=== PATIENT | female | born 1940 | race Caucasian/White ===

== ENCOUNTER → 2017-02-12 | Outpatient (REF) | payer OTHER ==
[~2017-02-12] MED LIST: /MOXI40TA PO; ACET-654 PO; ALLO300T2 PO; ASPI1TAB PO; ASPI81CH12 PO; ATOR40TA PO; BISO5TAB5 PO; BISO5TAB54 PO; CIPR500T89 PO; COLA50CA3 PO; FLAG500T PO; HYDR12.56 PO; LASI20TA PO; LASI40TA PO; LISI5TAB PO; LOSA50TA20 PO; METF500T PO; MICR10CA PO; MULTTAB4 PO; NORCOTAB PO; OMEP20CA3 PO; PERCOCET PO; POTA20TA4 PO; PRED10TA2 PO; PRED1TAB32 PO; VITA200019 PO; VITMTA PO; ZYLO300T4 PO; benefiber PO
== END ==
LOC: M SFHCPLAZ 10:06
PROVIDERS: ATTEND Family Medicine
DX: E11.9 Type 2 diabetes mellitus without complications (principal)

== ENCOUNTER → 2017-05-05 | Outpatient (CLI) | payer OTHER ==
[~2017-05-05] VITALS: Ht 154.9 cm; Wt 104.3 kg
[~2017-05-05] MED LIST changes: -ATOR40TA PO; +ATOR40TA75 PO; +CIPR-249 PO; -CIPR500T89 PO; +FIBE625T27 PO; +LIDOCAINE 2% INJ 100 MG/5 ML SDV (FOR ANES.) As Ordered ONE; +METF500T13 PO; +NS 1,000 ML IV ONE; +PROPOFOL 500 MG/50 ML VIAL As Ordered ONE; +VITA100067 PO
--- NOTE | 2017-05-05 08:46 | ROOR ---
Patient Name: Diana Matias Procedure Date: 05/05/2017 8:03 AM Date of : 1940 Age: 76 Room: [facility] Gender: Female Note Status: Finalized Procedure: Colonoscopy Indications: High risk colon cancer surveillance: Personal history of colonic polyps Providers: Hal Stevens DO Referring MD: Allegra Robbins DO Requesting Provider: Medicines: Propofol per Anesthesia Complications: No immediate complications. Estimated blood loss: None. Procedure: Pre-Anesthesia Assessment: - Prior to the procedure, a History and Physical was performed, and patient medications and allergies were reviewed. The patient is competent. The risks and benefits of the procedure and the sedation options and risks were discussed with the patient. All questions were answered and informed consent was obtained. Patient identification and proposed procedure were verified by the physician, the nurse, the anesthesiologist and the operations technician in the endoscopy suite. Mental Status Examination: alert and oriented. Airway Examination: normal oropharyngeal airway and neck mobility. Respiratory Examination: clear to auscultation. CV Examination: normal. Prophylactic Antibiotics: The patient does not require prophylactic antibiotics. Prior Anticoagulants: The patient has taken no previous anticoagulant or antiplatelet agents. ASA Grade Assessment: II - A patient with mild systemic disease. After reviewing the risks and benefits, the patient was deemed in satisfactory condition to undergo the procedure. The anesthesia plan was to use monitored anesthesia care (MAC). Immediately prior to administration of medications, the patient was re-assessed for adequacy to receive sedatives. The heart rate, respiratory rate, oxygen saturations, blood pressure, adequacy of pulmonary ventilation, and response to care were monitored throughout the procedure. The physical status of the patient was re-assessed after the procedure. The Colonoscope was introduced through the anus and advanced to the cecum, identified by appendiceal orifice and ileocecal valve. The colonoscopy was performed without difficulty. The patient tolerated the procedure well. Findings: The perianal exam findings include internal hemorrhoids that prolapse with straining, but spontaneously regress to the resting position (Grade II). Two hyperplastic polyps were found in the descending colon and distal transverse colon. The polyps were 5 to 8 mm in size. These polyps were removed with a hot snare. Resection and retrieval were complete. Estimated blood loss was minimal. A less than 5 mm polyp was found in the ascending colon. The polyp was hyperplastic. Polyp resection was incomplete due to the polypectomy being technically difficult and complex. The exam was otherwise without abnormality on direct and retroflexion views. Impression: - Internal hemorrhoids that prolapse with straining, but spontaneously regress to the resting position (Grade II) found on perianal exam. - Two 5 to 8 mm polyps in the descending colon and in the distal transverse colon, removed with a hot snare. Resected and retrieved. - One less than 5 mm polyp in the ascending colon. - The examination was otherwise normal on direct and retroflexion views. Recommendation: - Patient has a contact number available for emergencies. The signs and symptoms of potential delayed complications were discussed with the patient. Return to normal activities tomorrow. Written discharge instructions were provided to the patient. - Repeat colonoscopy in 3 - 5 years for surveillance based on pathology results. - Return to my office PRN. Hal Stevens DO 05/05/2017 8:46:00 AM This report has been signed electronically. Number of Addenda: 0 Note Initiated On: 05/05/2017 8:03 AM Estimated Blood Loss: Estimated blood loss: none.
[2017-05-05 09:30] VITALS: BP 154/71
== END | disposition home or self-care (01) ==
LOC: M OPP 07:13
PROVIDERS: ATTEND Surgery
DX: Z12.11 Encounter for screening for malignant neoplasm of colon (principal); K64.1 Second degree hemorrhoids; D12.4 Benign neoplasm of descending colon; D12.3 Benign neoplasm of transverse colon; D12.2 Benign neoplasm of ascending colon; K21.9 Gastro-esophageal reflux disease without esophagitis; I50.9 Heart failure, unspecified; M10.9 Gout, unspecified; E11.9 Type 2 diabetes mellitus without complications; I10 Essential (primary) hypertension; E78.5 Hyperlipidemia, unspecified; E66.9 Obesity, unspecified; G47.30 Sleep apnea, unspecified; Z91.011 Allergy to milk products; Z88.0 Allergy status to penicillin; Z88.8 Allergy status to other drugs, medicaments and biological substances; Z79.899 Other long term (current) drug therapy; Z79.82 Long term (current) use of aspirin; Z79.84 Long term (current) use of oral hypoglycemic drugs; Z86.79 Personal history of other diseases of the circulatory system

== ENCOUNTER → 2017-08-11 | Outpatient (REF) | payer OTHER ==
[~2017-08-11] MED LIST changes: -LIDOCAINE 2% INJ 100 MG/5 ML SDV (FOR ANES.) As Ordered ONE; -NS 1,000 ML IV ONE; -PROPOFOL 500 MG/50 ML VIAL As Ordered ONE
== END ==
LOC: M SFHCPLAZ 11:22
PROVIDERS: ATTEND Hospitalist
DX: E11.9 Type 2 diabetes mellitus without complications (principal)

== ENCOUNTER → 2017-09-02 | Outpatient (REF) | payer OTHER ==
[2017-09-02 16:27] LABS: ALKALINE PHOSPHATASE 111 U/L (45-117); ANION GAP 7 MEQ/L (8-16); BLOOD UREA NITROGEN 19 MG/DL (7-18); CALCIUM LEVEL 10.7 MG/DL (8.8-10.2); CARBON DIOXIDE LEVEL 31 MEQ/L (21-32); CHLORIDE LEVEL 106 MEQ/L (98-107); CREATININE FOR GFR 0.89 MG/DL (0.55-1.02); GLOMERULAR FILTRATION RATE > 60.0 (>39); GLUCOSE, FASTING 68 MG/DL (83-110); PHOSPHORUS LEVEL 2.2 MG/DL (2.5-4.9); SODIUM LEVEL 144 MEQ/L (136-145); TOTAL PROTEIN 6.6 GM/DL (6.4-8.2)
[2017-09-06 10:53] LABS: ALBUMIN 3.78 GM/DL (3.29-5.55); ALBUMIN % 57.3 % (55.8-66.1); GAMMA GLOBULIN % 9.4 % (11.1-18.8)
== END ==
LOC: M SFHCPLAZ 13:42
DX: E83.52 Hypercalcemia (principal)
CPT/HCPCS: 36415; 80048; 82306; 83970; 84075; 84100; 84165; 84166; 90670; G0009; G0463

== ENCOUNTER → 2017-09-18 | Outpatient (CLI) | payer OTHER ==
[2017-09-18 10:58] LABS: CALCIUM LEVEL 10.6 MG/DL (8.8-10.2)
== END ==
LOC: M LAB 09:28
PROVIDERS: ATTEND Hospitalist
DX: J00 Acute nasopharyngitis [common cold] (principal); E21.3 Hyperparathyroidism, unspecified

== ENCOUNTER → 2017-09-21 | Outpatient (REF) | payer OTHER ==
[2017-09-21 10:51] LABS: CALCIUM, URINE 10.7 MG/DL
== END ==
LOC: M SFHCPLAZ 09:58
PROVIDERS: ATTEND Hospitalist
DX: E21.3 Hyperparathyroidism, unspecified (principal); J00 Acute nasopharyngitis [common cold]

== ENCOUNTER → 2017-10-25 | Outpatient (CLI) | payer OTHER ==
--- NOTE | 2017-10-25 14:48 | REP ---
NUCLEAR PARATHYROID SESTAMIBI SCAN WITH SPECT IMAGING: Following the intravenous administration of 27.5 mCi of technetium-99m sestamibi images of the neck are performed in various projections. Initial 15 minute images are performed followed by 3 hour delayed images of the neck with SPECT imaging also performed. Initial images show symmetrical salivary gland uptake. There is activity in the thyroid bed more so on the right than on the left. On the delayed images the activity in the left thyroid bed washes out, but there is a persistent focus of increased uptake in the inferior right thyroid bed. Findings are consistent with a parathyroid adenoma at that location. IMPRESSION: Findings consistent with right sided parathyroid adenoma inferiorly in the region of the right thyroid bed. Signed by Hal Nam MD 10/25/2017 05:58 P
== END ==
LOC: M RAD 09:05
PROVIDERS: ATTEND Hospitalist
DX: E21.3 Hyperparathyroidism, unspecified (principal)
CPT/HCPCS: 78070; 78803; A9500

== ENCOUNTER → 2018-02-03 | Outpatient (REF) | payer OTHER ==
[2018-02-03 18:38] LABS: ANION GAP 5 MEQ/L (8-16); BLOOD UREA NITROGEN 14 MG/DL (7-18); CALCIUM LEVEL 10.4 MG/DL (8.8-10.2); CARBON DIOXIDE LEVEL 30 MEQ/L (21-32); CHLORIDE LEVEL 108 MEQ/L (98-107); CREATININE FOR GFR 0.78 MG/DL (0.55-1.30); GLOMERULAR FILTRATION RATE > 60.0 (>39); GLUCOSE, FASTING 89 MG/DL (70-100); POTASSIUM SERUM 4.2 MEQ/L (3.5-5.1); SODIUM LEVEL 143 MEQ/L (136-145)
[2018-02-03 18:53] LABS: PTH INTACT 233.1 PG/ML (18.5-88.0)
[2018-02-04 10:44] LABS: APPEARANCE, URINE CLEAR (CLEAR); BACTERIA, URINE AUTO NEGATIVE (NEGATIVE); BILIRUBIN, URINE AUTO NEGATIVE (NEGATIVE); BLOOD, URINE BLOOD NEGATIVE (NEGATIVE); COLOR, URINE YELLOW (YELLOW); GLUCOSE, URINE (UA) AUTO NEGATIVE (NEGATIVE); KETONE, URINE AUTO NEGATIVE (NEGATIVE); LEUKOCYTE ESTERASE, URINE AUTO TRACE (NEGATIVE); NITRITE, URINE AUTO NEGATIVE (NEGATIVE); PROTEIN, URINE AUTO NEGATIVE (NEGATIVE); RBC, URINE AUTO 0 /HPF (0-3); SPECIFIC GRAVITY URINE AUTO 1.009 (1.002-1.035); SQUAMOUS EPITHELIAL CELL UR AU 0 /HPF (0-6); UROBILINOGEN, URINE AUTO 0.2 mg/dL (0.0-2.0); WBC, URINE AUTO 2 /HPF (0-3)
== END ==
LOC: M SFHCPLAZ 14:37
DX: E83.52 Hypercalcemia (principal)
CPT/HCPCS: 80048

== ENCOUNTER → 2018-05-27 | Outpatient (REF) | payer OTHER ==
[2018-05-27 15:56] LABS: APPEARANCE, URINE CLEAR (CLEAR); BACTERIA, URINE AUTO NEGATIVE (NEGATIVE); BILIRUBIN, URINE AUTO NEGATIVE (NEGATIVE); BLOOD, URINE BLOOD NEGATIVE (NEGATIVE); COLOR, URINE STRAW (YELLOW); GLUCOSE, URINE (UA) AUTO NEGATIVE (NEGATIVE); KETONE, URINE AUTO NEGATIVE (NEGATIVE); LEUKOCYTE ESTERASE, URINE AUTO NEGATIVE (NEGATIVE); NITRITE, URINE AUTO NEGATIVE (NEGATIVE); PROTEIN, URINE AUTO NEGATIVE (NEGATIVE); RBC, URINE AUTO 3 /HPF (0-3); SPECIFIC GRAVITY URINE AUTO 1.006 (1.002-1.035); SQUAMOUS EPITHELIAL CELL UR AU 0 /HPF (0-6); UROBILINOGEN, URINE AUTO 0.2 mg/dL (0.0-2.0); WBC, URINE AUTO 1 /HPF (0-3)
[2018-05-27 16:16] LABS: ANION GAP 5 MEQ/L (8-16); BLOOD UREA NITROGEN 16 MG/DL (7-18); CALCIUM LEVEL 9.4 MG/DL (8.8-10.2); CARBON DIOXIDE LEVEL 31 MEQ/L (21-32); CHLORIDE LEVEL 107 MEQ/L (98-107); CREATININE FOR GFR 0.81 MG/DL (0.55-1.30); GLOMERULAR FILTRATION RATE > 60.0 (>39); GLUCOSE, FASTING 71 MG/DL (70-100); NT-PRO BNP 113 PG/ML (<450); POTASSIUM SERUM 4.1 MEQ/L (3.5-5.1); SODIUM LEVEL 143 MEQ/L (136-145)
[2018-05-27 16:22] LABS: CREATININE, URINE 29.2 MG/DL; MAU/CREAT RATIO 20.5 MCG/MG (0.0-30.0)
== END ==
LOC: M SFHCPLAZ 13:58
DX: M79.89 Other specified soft tissue disorders (principal); I51.9 Heart disease, unspecified; R21 Rash and other nonspecific skin eruption; G47.33 Obstructive sleep apnea (adult) (pediatric)
CPT/HCPCS: 82043

== ENCOUNTER 2019-02-01 11:03 | Emergency (ER) | payer MEDICARE, OTHER ==
[~2019-02-01] VITALS: Ht 154.9 cm; Wt 104.5 kg
[~2019-02-01 11:03] MED LIST changes: -/MOXI40TA PO; -ASPI1TAB PO; +ASPI81TA26 PO; +AVEL1TAB2 PO; +HYDR-3715 PO; -LASI20TA PO; +LASI20TA3 PO; -LOSA50TA20 PO; +LOSA50TA88 PO; -NORCOTAB PO; +OXYC1TAB23 PO; -PERCOCET PO; -ZYLO300T4 PO; +ZYLO300T6 PO
--- NOTE | 2019-02-01 11:44 | REP ---
CT Head without contrast HISTORY: Headache COMPARISON: None There is no intraparenchymal hemorrhage, acute infarct, mass or midline shift. Diffuse subarachnoid hemorrhage is present. The ventricular system is normal in appearance. There is no extra cerebral collection. There is no fracture. Mucosal thickening is present in the right maxillary sinus. IMPRESSION: There is diffuse subarachnoid hemorrhage. Results were discussed with Dr. Aponte at 11:35 a.m. 02/01/2019 Electronically Signed by Wilfredo Jung MD 02/01/2019 11:35 A
[2019-02-01] MEDS ORDERED: MORPHINE 2 MG/ML 1ML SYRINGE (J2270) IV PRN (11:45)
[2019-02-01] MEDS ORDERED: ONDANSETRON 4MG/2ML VIAL (J2405) IV ONE (11:45)
[2019-02-01] MEDS ORDERED: niMODipine 30 MG CAP PO STA (11:58)
[2019-02-01] MEDS ORDERED: levETIRAcetam INJection 1,000 MG in D5W 100 ML IV ONE (12:00)
[2019-02-01] MEDS ORDERED: niCARdipine IV 40 MG in APPROPRIATE DILUENT 1 EA IV SCH (12:00)
[2019-02-01 12:10] LABS: BASO % 0.2 % (0.0-1.0); EOS % 0.9 % (0.0-3.0); HEMATOCRIT 42.1 % (36.0-47.0); HEMOGLOBIN 13.5 g/dl (12.0-15.5); LYMPH % 22.2 % (24.0-44.0); MEAN CORPUSCULAR HEMOGLOBIN 29.9 pg (27.0-33.0); MEAN CORPUSCULAR HGB CONC 32.1 g/dl (32.0-36.5); MEAN CORPUSCULAR VOLUME 93.1 fl (80.0-96.0); MONO # 0.2 10^3/uL (0.0-0.8); MONO % 5.1 % (0.0-5.0); NEUTROPHILS # 3.2 10^3/uL (1.8-7.7); NEUTROPHILS % 71.6 % (36.0-66.0); PLATELET COUNT, AUTOMATED 179 10^3/uL (150-450); RED BLOOD COUNT 4.52 10^6/uL (4.00-5.40); WHITE BLOOD COUNT 4.5 10^3/uL (4.0-10.0)
[2019-02-01 12:27] VITALS: BP 173/81
[2019-02-01 12:27] LABS: INR 1.03; PROTHROMBIN TIME 13.6 SECONDS (12.1-14.4)
[2019-02-01 12:35] LABS: ALBUMIN 3.6 GM/DL (3.2-5.2); ALT/SGPT 19 U/L (12-78); BILIRUBIN,TOTAL 0.5 MG/DL (0.2-1.0); BLOOD UREA NITROGEN 19 MG/DL (7-18); CALCIUM LEVEL 10.2 MG/DL (8.8-10.2); CARBON DIOXIDE LEVEL 30 MEQ/L (21-32); CHLORIDE LEVEL 104 MEQ/L (98-107); CREATININE FOR GFR 0.95 MG/DL (0.55-1.30); GLOMERULAR FILTRATION RATE > 60.0 (>32); GLUCOSE, FASTING 122 MG/DL (70-100); POTASSIUM SERUM 3.9 MEQ/L (3.5-5.1); SODIUM LEVEL 140 MEQ/L (136-145)
== END 2019-02-01 12:27 | disposition short-term general hospital (02) ==
LOC: M ED 11:03 → EDBD 11:03 → M ED 12:27
DX: I60.9 Nontraumatic subarachnoid hemorrhage, unspecified (principal); I11.0 Hypertensive heart disease with heart failure; I50.9 Heart failure, unspecified; E11.9 Type 2 diabetes mellitus without complications; I25.10 Atherosclerotic heart disease of native coronary artery without angina pectoris; Z79.899 Other long term (current) drug therapy; Z79.84 Long term (current) use of oral hypoglycemic drugs; Z79.82 Long term (current) use of aspirin; Z88.0 Allergy status to penicillin; Z88.8 Allergy status to other drugs, medicaments and biological substances; Z91.018 Allergy to other foods
CPT/HCPCS: 70450; 80053; 85025; 85610; 96365; 96375; 99285; J1953; J2270; J2405

== ENCOUNTER 2019-02-17 14:37 | Inpatient (IN) | payer MEDICARE ==
[~2019-02-17] VITALS: Ht 154.9 cm; Wt 103.7 kg
[2019-02-17 15:05] VITALS: BP 164/77
[2019-02-17] MEDS ORDERED: SENN18TA PO (16:12)
[2019-02-17] MEDS ORDERED: CALC12504 PO (16:12)
[2019-02-17] MEDS ORDERED: HEPA500011 INJ (16:12)
[2019-02-17] MEDS ORDERED: BISA10SU27 PR (16:12)
[2019-02-17] MEDS ORDERED: MIRA3350 PO (16:12)
[2019-02-17] MEDS ORDERED: COLA100C5 PO (16:12)
[2019-02-17] MEDS ORDERED: TRAV04OPD OU (16:12)
[2019-02-17] MEDS ORDERED: MELA3TAB49 PO (16:12)
[2019-02-17] MEDS ORDERED: CVS40GEL PO (16:12)
[2019-02-17] MEDS ORDERED: C 50TAB PO (16:12)
[2019-02-17] MEDS ORDERED: FLUD0.1T PO (16:12)
[2019-02-17] MEDS ORDERED: SODI1TAB6 PO (16:12)
[2019-02-17] MEDS ORDERED: KEPP1TAB PO (16:12)
[2019-02-17] MEDS ORDERED: OXYC-517 PO (16:12)
[2019-02-17] MEDS ORDERED: ACET-907 PO (16:12)
[2019-02-17] MEDS ORDERED: LOSA100T50 PO (16:12)
[2019-02-17] MEDS ORDERED: NYST1POW9 TOP (16:12)
[2019-02-17] MEDS ORDERED: MILKSUS3 PO (16:12)
[2019-02-17] MEDS ORDERED: [UNRECOGNIZED DRUG - CODE] PO (16:12)
[2019-02-17] MEDS ORDERED: POTA1TAB14 PO (16:12)
[2019-02-17] MEDS ORDERED: oxyCODONE 5MG TAB PO PRN (16:30)
[2019-02-17] MEDS ORDERED: NYSTATIN 100,000 UNITS/GM TOPICAL PWD 15 GM TOP PRN (16:30)
[2019-02-17] MEDS ORDERED: GLUCAGON FOR INJ 1 MG VIAL (J1610) SC PRN (17:00)
[2019-02-17] MEDS ORDERED: MAALOX 30 ML SUSP *UDC PO PRN (17:00)
[2019-02-17] MEDS ORDERED: GLUCOSE 4 GM CHEW TABLET PO PRN (17:00)
[2019-02-17] MEDS ORDERED: BISACODYL 10 MG SUPP PR PRN (17:00)
[2019-02-17] MEDS ORDERED: ONDANSETRON 4 MG TAB (S0181) PO PRN (17:00)
[2019-02-17] MEDS ORDERED: HEPARIN SOD (PORCINE) 5000 UNITS/ML VIAL SC SCH (17:00)
[2019-02-17] MEDS ORDERED: DEXTROSE 50% 50 ML SYRINGE IV PRN (17:00)
[2019-02-17] MEDS: DOCUSATE SODIUM 100 MG CAP PO SCH ×2 (18:12→20:10)
[2019-02-17] MEDS: SODIUM CHLORIDE 1 GM TAB PO SCH (18:20)
--- NOTE | 2019-02-17 18:23 | CR ---
DATE OF CONSULTATION: 02/17/[address] Jesus Alberto Cheng. Hospitalist consult. Patient is followed by the residency clinic, Dr. Zimmerman. 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 Last seen by Dr. Zimmerman on 02/01/2019. MEDICAL HISTORY: Significant for: 1. Hypertension. 2. Type 2 diabetes. 3. Hyperlipidemia. 4. Gastroesophageal reflux disease (GERD). 5. Mild chronic diastolic heart failure. 6. Some hypercalcemia. She is followed by [facility], Dr. De La Cruz. Had an echocardiogram May 2015 that showed normal left ventricular systolic function, mild aortic insufficiency. She had a nuclear stress test May 2015 with 80% ejection fraction. No reversible ischemia. SURGICAL HISTORY: 1. Laser retinal surgery in the left eye and then subsequently both eyes. 2. Colonoscopy 2016. 3. Cataract removed in 2013. 4. Cystourethroscopy with repair of urethral bulking May 2015. 5. Cholecystectomy January 2017. SOCIAL HISTORY: Does not smoke or drink any alcohol. REVIEW OF SYSTEMS: No headaches, chest pain, shortness of breath, dyspnea on exertion. OUTPATIENT MEDICATIONS: - metformin 500 mg twice a day - nystatin cream - Benefiber - aspirin 81 mg daily - vitamin D3 at 1000 units daily - omeprazole 20 mg daily - Klor-Con 20 mEq daily - Lasix 40 mg, one and one-half tablets daily - atorvastatin 40 mg daily - losartan 100 mg daily IMMUNIZATIONS: She had her Prevnar August 2017, Pneumothorax 30 August 2018. PHYSICAL EXAMINATION: VITAL SIGNS: Per flow sheet. GENERAL APPEARANCE:. She is alert, conversant in no distress. Pupils equal, round, and reactive to light. Tympanic membranes (TMs) and oropharynx benign. NECK: No masses. LUNGS: Clear. HEART: Irregular rhythm, a 1/6 systolic ejection murmur. ABDOMEN: Soft, nontender. No masses. NEUROLOGIC: Normal movement in the arms and legs. Speech is normal. Cranial nerves II-XII grossly normal. EXTREMITIES: No clubbing, cyanosis, or edema. IMPRESSION: 1. Type 2 diabetes. She is getting fingersticks. If she becomes hyperglycemic, she could restart her metformin that she takes as an outpatient. 2. Hypertension. Continue her losartan 100 mg daily. She is on furosemide only 10 mg daily, nimodipine 60 mg every 4 hours times 36 doses. 3. Hyperlipidemia. Continue atorvastatin 40 mg daily. 4. 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 She is currently on aspirin 81 mg daily. I will clarify this with Dr. Granda. Hospitalist available if any medical conditions arise.
[2019-02-17 20:00] VITALS: BP 176/74
[2019-02-17] MEDS: niMODipine 30 MG CAP PO SCH (20:09)
[2019-02-17] MEDS: ATORVASTATIN 20 MG TAB PO SCH (20:09)
[2019-02-17] MEDS: levETIRAcetam 250MG TABLET (KEPPRA) PO SCH (20:09)
[2019-02-17] MEDS: ASCORBIC ACID 500 MG TAB PO SCH (20:10)
[2019-02-17] MEDS: traZODone 25MG PER 1/2 TABLET PO SCH (20:10)
[2019-02-17] MEDS: ACETAMINOPHEN TAB 650MG DOSE (2X325MG) PO PRN (20:11)
[2019-02-17] MEDS: HEPARIN SOD (PORCINE) 5000 UNITS/ML VIAL SQ SCH (20:11)
[2019-02-17] MEDS: SENNA 8.6 MG TAB (SENOKOT) PO SCH (20:12)
[2019-02-17] MEDS ORDERED: DOCUSATE SODIUM 100 MG CAP PO SCH (21:00)
[2019-02-17] MEDS: HumaLOG INSULIN (NovoLOG) PER UNIT SC SCH (21:00)
[2019-02-18] MEDS: niMODipine 30 MG CAP PO SCH ×6 (00:29→21:35)
[2019-02-18 01:30] LABS: APPEARANCE, URINE HAZY (CLEAR); BACTERIA, URINE AUTO 1+ (NEGATIVE); BILIRUBIN, URINE AUTO NEGATIVE (NEGATIVE); BLOOD, URINE BLOOD NEGATIVE (NEGATIVE); COLOR, URINE YELLOW (YELLOW); GLUCOSE, URINE (UA) AUTO NEGATIVE (NEGATIVE); KETONE, URINE AUTO NEGATIVE (NEGATIVE); LEUKOCYTE ESTERASE, URINE AUTO TRACE (NEGATIVE); MUCUS, URINE SMALL (NEGATIVE); NITRITE, URINE AUTO NEGATIVE (NEGATIVE); PROTEIN, URINE AUTO NEGATIVE (NEGATIVE); RBC, URINE AUTO 3 /HPF (0-3); SPECIFIC GRAVITY URINE AUTO 1.023 (1.002-1.035); SQUAMOUS EPITHELIAL CELL UR AU 3 /HPF (0-6); WBC, URINE AUTO 18 /HPF (0-3)
[2019-02-18 06:00] VITALS: BP 158/80
[2019-02-18] MEDS: HumaLOG INSULIN (NovoLOG) PER UNIT SC SCH ×4 (07:30→21:00)
[2019-02-18] MEDS: HEPARIN SOD (PORCINE) 5000 UNITS/ML VIAL SQ SCH ×2 (08:13→21:36)
[2019-02-18] MEDS: POTASSIUM CHLORIDE 10 MEQ SR TABLET PO SCH (08:13)
[2019-02-18] MEDS: SODIUM CHLORIDE 1 GM TAB PO SCH ×3 (08:13→17:20)
[2019-02-18] MEDS: levETIRAcetam 250MG TABLET (KEPPRA) PO SCH ×2 (08:14→21:37)
[2019-02-18] MEDS: FLUDROCORTISONE ACETATE 0.1 MG TAB PO SCH (08:14)
[2019-02-18] MEDS: ASPIRIN 81 MG CHEW TABLET PO SCH (08:14)
[2019-02-18] MEDS: DOCUSATE SODIUM 100 MG CAP PO SCH ×3 (08:14→21:00)
[2019-02-18] MEDS: FUROSEMIDE 10MG PER 1/2 TABLET PO SCH (08:14)
[2019-02-18] MEDS: OMEPRAZOLE 20 MG CAP PO SCH (08:14)
[2019-02-18] MEDS: ASCORBIC ACID 500 MG TAB PO SCH ×2 (08:14→21:37)
[2019-02-18] MEDS: LOSARTAN 50 MG TAB PO SCH (08:14)
[2019-02-18] MEDS ORDERED: PANTOPRAZOLE 40MG TAB (PROTONIX) PO SCH (09:00)
--- NOTE | 2019-02-18 11:55 | NUR ---
Cognitive linguistic eval indicated overall ability levels within attention, memory, executive functions, language, and visuospatial skills to be WNL. However, higher level complex problem solving tasks required support from ENVIRONMENTAL JOURNALIST in order to be completed correctly and consistently. Pt reports that at baseline, she continues to complete grocery shopping, driving, laundry, meal prep, bill payments, and medication management. She also is at home alone during the day while her son works. Recommend continued cognitive therapy to address high level complex problem solving tasks to enable full return to baseline level of function and ensure highest levels of success with these types of tasks upon return home. Addendum: 02/18/19 at 1158 by MITCHELL SCHULTE SSV SP Amended: Links added.
[2019-02-18 14:00] VITALS: BP 160/80
--- NOTE | 2019-02-18 15:46 | IPNPDOC ---
Date Seen The patient was seen on 02/18/19. Progress Note SUBJECTIVE: Patient reports no complaints he tells me she is feeling quite fine. She denies chest pressure shortness of breath fevers chills nausea vomiting or diarrhea. She tells me that she still has an intermittent headache but is relieved by Tylenol and she does not have one presently OBJECTIVE PHYSICAL EXAMINATION: VITAL SIGNS: Please see below. GENERAL: Very pleasant morbidly obese female sitting in a chair she does not appear to be in any acute distress HEENT: Cranial nerves II through XII grossly intact she has a bandage over her right neck it is clean dry and intact CARDIOVASCULAR: S1-S2 regular no additional heart sounds appreciated. RESPIRATORY: Clear to auscultation bilaterally. ABDOMINAL: Morbidly obese bowel sounds present and soft EXTREMITIES: Trace edema NEUROLOGICAL: No gross focal deficits LABORATORY DATA, IMAGING STUDIES, MICROBIOLOGY: Please see below. DVT prophylaxis ordered?: Heparin ASSESSMENT AND PLAN: This is a 78-year-old female with subarachnoid hemorrhage status post left ICA coiling 3. PROBLEMS: 1. Subarachnoid hemorrhage status post coiling to the left ICA: Appears be doing quite well at this time she is continued on Keppra 500 mg by mouth twice a day which is to be a 21 day course. She is also continued on nimodipine and has not demonstrated no vascular spasm up until this point. Patient is continued on aspirin 2. 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 She does have some trace edema. I will check a CBC and BMP tomorrow and consider titrating up her Lasix after reevaluating her sodium level 3. GI bleed: Seen by GI recently felt to be secondary to hemorrhoids we'll check a CBC tomorrow to evaluate her hemoglobin. Patient is continued on aspirin and DVT prophylaxis heparin 4. Dyslipidemia: Continue with statin 5. Hypertension: Continued on losartan nimodipine and furosemide, she is also on Florinef related to her hyponatremia which may be driving her blood pressure up somewhat and will require close monitoring 6. Diabetes: She is on sliding scale finger 6 uncontrolled 7. Diastolic congestive heart failure: Patient carries appears her documented diagnosis of this we'll monitor bone status closely while Florinef as outlined above 8. Gastroesophageal reflux disease: Continue with PPI 9. Mood disorder: Continue his trazodone DISPOSITION: As per physiatry. VS, I&O, 24H, Fishbone Vital Signs/I&O Vital Signs Date Time Temp Pulse Resp B/P (MAP) Pulse Ox O2 Delivery O2 Flow Rate FiO2 02/18/19 14:00 97.9 77 18 160/80 (106) 97 I&O- Last 24 Hours up to 6 AM 02/18/19 06:00 Intake Total 120 ml Output Total 200 ml Balance -80 ml Laboratory Data 24H LABS Laboratory Tests 2 02/17/19 17:01: Bedside Glucose (Misc Panel) 103 02/17/19 20:02: Bedside Glucose (Misc Panel) 236H 02/18/19 01:20: Urine Appearance HAZY, Urine Color YELLOW, Urine pH 5.0, Urine Specific [place] 1.023, Urine Protein NEGATIVE, Urine Glucose (UA) NEGATIVE, Urine Ketones NEGATIVE, Urine Urobilinogen 2.0H, Urine Bilirubin NEGATIVE, Urine Leukocyte Esterase TRACEH, Urine Blood NEGATIVE, Urine Nitrite NEGATIVE, Urine WBC (Auto) 18H, Urine RBC (Auto) 3, Urine Hyaline Casts (Auto) 1, Urine Bacteria (Auto) 1+H, Urine Squamous Epithelial Cells 3, Urine Mucus (Auto) SMALL, Urine Sperm (Auto) 02/18/19 06:03: Bedside Glucose (Misc Panel) 101 02/18/19 11:57: Bedside Glucose (Misc Panel) 109 Microbiology Microbiology 02/18/19 Urine Culture, Received Pending RUDI MELÉNDEZ MD Feb 18, 2019 15:46
--- NOTE | 2019-02-18 17:06 | HPEPDOC ---
Hris Analyst Note DATE OF ADMISSION: Feb 17, 2019 at 15:05 SOURCE OF ADMISSION INFORMATION: [facility] records and patient CHIEF COMPLAINT: subarachnoid hemorrhages HISTORY OF PRESENT ILLNESS: 78F pmh CHF, arthritis, DM, HTN, diastolic CHF, hypercalcemia on aspirin who presented initially to [facility] ED with sudden onset of headache and nausea with photophobia where CTH revealed diffuse subarachnoid hemorrhage for which she was transferred to [facility] where he was admitted to the neuro-ICU. CTA neck showed an extracranial left ICA aneurysm dilation measuring up to 2.3 cm and CTA head showed, right MCA bifurcation aneurysm measuring up to 5mm. She was given DDAVP to reverse her aspirin effects, started on Nimodipine to prevent vasospasm, and placed on IV blood pressure medications to keep sBP below 130. In addition she was started on Keppra for seizure prophylaxis. On 02/02/19 she underwent a cerebral angiogram with embolization of the right MCA (M1) bifurcation without complications. On 02/05/19 she underwent an ECHO showing, There is mild concentric left ventricular hypertrophy Estimated LVEF 60 - 65% . She developed hyponatremia, still required daily diuretics for her CHF, did not respond well enough to salt tabs so Florinef was added on day pf discharge. Aspirin was also restarted on day of discharge to treat left cervical unruptured aneurysm as confirmed over the phone with neurosurgical resident Dr. Castillo who confirmed with his attending as not documented in [facility] notes or discharge summary. She was evaluated by therapy and found to have impairments in gait and ADL and deemed medically appropriate for discharge to ARU on 02/17/19. REVIEW OF SYSTEMS: The following is a completed review of systems and has been reviewed. Review of systems otherwise unremarkable. PAIN: Patient self reports no pain, no headache EYES: Negative for photophobia EARS, NOSE, & THROAT: denies dysphagia or throat pain CARDIOVASCULAR: denies chest pain or palpitations PULMONARY: Negative. Denies shortness of breath GASTROINTESTINAL: +soft stools GENITOURINARY: Negative for dysuria. MUSCULOSKELETAL: generalized weakness NEUROLOGICAL: +SAH with no focal deficits SKIN: intact PSYCHIATRIC: Unremarkable All other review of systems found to be negative. PAST MEDICAL HISTORY: as per HPI PAST SURGICAL HISTORY: Cholecystectomy 2015, left Knee arthroscopy 2008, retinal laser surgery for glaucoma ALLERGIES: Please see below. MEDICATIONS: Please see below. SOCIAL HISTORY: Lives with son, denied ETOH or smoking, retired DIET: consistent carb PHYSICAL EXAMINATION: VITAL SIGNS: Please see below. GENERAL: Pleasant and cooperative. No acute distress. HEENT: PERRL. Extraocular movements intact. Clear conjunctiva CARDIOVASCULAR: Regular rate and rhythm. No murmurs, rubs, or gallops LUNGS: Mostly clear to auscultation bilaterally with crackles in right lower base. No wheezes. No rhonchi ABDOMEN: Soft, nontender, nondistended. Positive bowel sounds. Normal active bowel sounds NEUROLOGICAL: Alert and oriented times three. Cranial nerves II through XII grossly intact. Sensation grossly intact +Luria, able to name objects EXTREMITIES: 5\5 strength bilateral upper extremities (no pronator drift), 5\5 strength right lower extremity. 5/5 strength in left lower extremity. (+) Ricardo's bilat SKIN: intact, warm well perfused IMAGING: Imaging documentation personally reviewed by record FUNCTIONAL STATUS: Premorbid: Independent with all activities of daily life as well as mobility On Admission: Min-assist for bed mobility and functional transfers, Min assist for ambulation and stairs, Mod-max assist for toileting, lower body dressing,. GOALS: Mod-I for ambulation, stair, optimize dynamic balance, fall recovery, Mod for bathing, dressing, toileting, and grooming, family training, assess for DME needs or home modifications, medical optimization ASSESSMENT:78-year-old F with past medical history of HTN and diastolic CHF who presents status post SAH s/p right MCA embolization. PLAN: 1. rehab: PT/OT and [employer]- assess for DME needs 2. 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 Castillo, neurosurgical resident as not documented in discharge summary or [facility] notes 3. CArdiac: pmh diastolic CHF c/u ASA and low dose lasix- medicine consulted -hyponatremia likely due to SIADH in setting of SAH, c/u salt tabs and florinef started today- will attempt to taper off quickly to avoid side effects -pmh HLD c/u statin therapy -pmh HTn c/u losartan 4. Resp: stable encourage incentive spirometry 5. Endo: pmh DM c/u insulin coverage, will hold metformin 6. GI ppx: omeprazole, pmh hemorrhoids will adjust bowel care to avoid constipation and straining 7. DVT ppx: heparin and TEDs- will order Dopplers 8. : f/u admission Ua and Ucx, monitor PVRs 9. Dispo: TBD POST ADMISSION PHYSICIAN EVALUATION: Medical and functional status: Description of medical status, medical assessment: As above. Rehabilitation diagnosis and current and prior cold morbid medical conditions as above. Risk of complications and plans to mitigate them as above. Description of functional status current status is as above. Prior status as above. Status compared to preadmission: There are no clinically significant differences between the patient's current status and the information described on the preadmission screening document. Treatment plan anticipated: Treatment plan is as described above. Required disciplines including physical therapy, occupational therapy, others as noted above. Intensity of services: 3 hours a day, 6 days a week. Special considerations: There are no specific special or safety considerations that would likely preclude immediate implementation of an intensive rehabilitation program or subsequently influence the plan of care ATTESTATION: Considering all the information above, it is my best judgment that this patient requires intensive rehabilitation therapy as described above and an inpatient hospital environment due to the complexity of nursing, medical, and rehabilitation needs required by the patient. Furthermore, this patient can reasonably be expected to participate in an benefit from an inpatient rehabilitation stay with an interdisciplinary team approach to the delivery of rehabilitation care under the direction and supervision of rehabilitation physician PROGNOSIS: Excellent ESTIMATED LENGTH OF STAY:18-21 days. PROJECTED DISCHARGE DESTINATION: Home with family support and any durable medical equipment required to increase functional safety and mobility TIME SPENT COUNSELING AND COORDINATING INITIAL CARE: Greater than 70 minutes. Vital Signs Vital Sign - Last 24 Hours 02/17/19 15:05 Temp 97.2 Pulse 76 Resp 17 B/P (MAP) 164/77 (106) Pulse Ox 96 Laboratory Data Labs 24H Laboratory Tests 2 02/17/19 17:01: Bedside Glucose (Misc Panel) 103 FSBS Laboratory Tests Test 02/17/19 17:01 Range/Units Bedside Glucose (Misc Panel) 103 83-110 MG/DL Home Medications Scheduled Ascorbic Acid (Vitamin C) 500 Mg Tablet, 500 MG PO DAILY, (Reported) Aspirin (Aspirin EC) 81 Mg Tab, 81 MG PO QHS, (Reported) Atorvastatin Calcium (Atorvastatin Calcium) 40 Mg Tab, 40 MG PO QHS, (Reported) Docusate Sodium (Colace) 100 Mg Capsule, 100 MG PO BID, (Reported) STARTED AT [facility] Fludrocortisone Acetate (Fludrocortisone Acetate) 0.1 Mg Tablet, 0.1 MG PO DAILY, (Reported) STARTED AT [facility] Furosemide (Lasix) 20 Mg Tab, 10 MG PO DAILY, (Reported) CHANGED DOSE AT [facility], WAS TAKING 20MG Heparin Sodium,Porcine (Heparin Sodium) 5,000 Unit/1 Ml Vial, 5,000 UNIT INJ BID, (Reported) STARTED AT [facility] Levetiracetam (Keppra) 500 Mg Tablet, 500 MG PO BID, (Reported) FOR 6 DAYS TO FINISH 21 DAY COURSE FROM 02/01/19 Losartan Potassium (Losartan Potassium) 100 Mg Tablet, 100 MG PO DAILY, (Reported) Magnesium Hydroxide (Milk of Magnesia) 400 Mg/5 Ml Oral.susp, 45 ML PO QHS, (Reported) STARTED AT [facility] Melatonin (Melatonin) 3 Mg Tab.rapdis, 3 MG PO QHS, (Reported) STARTED AT [facility] Metformin HCl (Metformin HCl) 500 Mg Tab, 500 MG PO BID, (Reported) Nimodipine (Nimodipine) 30 Mg Capsule, 60 MG PO Q4H, (Reported) FOR 6 DAYS TO COMPLETE 21 DAY COURSE FROM 02/01/19 Nystatin (Nystatin Powder) 15 Gm Powder, 1 DOSE TOP DAILY, (Reported) APPLY TO GROIN FOLDS Omeprazole (Omeprazole) 20 Mg Cap, 20 MG PO DAILY, (Reported) Potassium Chloride (Potassium Chloride) 20 Meq Tablet.er, 20 MEQ PO DAILY, (Reported) Senna (Senna Lax) 8.6 Mg Tablet, 2 TAB PO QHS, (Reported) Sodium Chloride (Sodium Chloride) 1 Gm Tablet, 2 GM PO TID, (Reported) STARTED AT [facility] Travoprost (Travatan Z) 2.5 Ml Drops, 1 DROP OU QHS, (Reported) Scheduled PRN Acetaminophen (Tylenol) 325 Mg Tablet, 650 MG PO Q4H PRN for PAIN, (Reported) Bisacodyl (Bisacodyl) 10 Mg Supp.rect, 10 MG KS Q3RD PRN for CONSTIPATION, (Reported) STARTED AT [facility] Calcium Carbonate (Calcium Carbonate) 500 Mg Tablet, 500 MG PO DAILY PRN for HEARTBURN/INDIGESTION, (Reported) Dextrose (Glucose Gel) 38 Gm Gel..gram., 37.5 ML PO PRN PRN for LOW BLOOD SUGAR, (Reported) Oxycodone HCl (Oxycodone HCl) 5 Mg Tablet, 5 MG PO Q4H PRN for PAIN, (Reported) STARTED AT [facility] Polyethylene Glycol 3350 (Miralax) 119 Gm Powder, 17 GM PO DAILY PRN for CONSTIPATION, (Reported) Allergies Coded Allergies: lisinopril (Verified Allergy, Severe, angio edema, 02/01/19) Penicillins (Verified Allergy, Intermediate, HIVES, 02/01/19) lactose (Verified Adverse Reaction, Mild, GI upset, 02/01/19) MEGHANN SUÁREZ MD Feb 17, 2019 17:50
[2019-02-18 20:00] VITALS: BP 152/88
[2019-02-18] MEDS: SENNA 8.6 MG TAB (SENOKOT) PO SCH (21:00)
[2019-02-18] MEDS: ACETAMINOPHEN TAB 650MG DOSE (2X325MG) PO PRN (21:36)
[2019-02-18] MEDS: ATORVASTATIN 20 MG TAB PO SCH (21:36)
[2019-02-18] MEDS: traZODone 25MG PER 1/2 TABLET PO SCH (21:37)
[2019-02-19] MEDS: niMODipine 30 MG CAP PO SCH ×7 (00:34→23:42)
[2019-02-19 06:00] VITALS: BP 150/67
[2019-02-19 07:06] LABS: HEMATOCRIT 33.5 % (36.0-47.0); HEMOGLOBIN 10.4 g/dl (12.0-15.5); MEAN CORPUSCULAR HEMOGLOBIN 29.4 pg (27.0-33.0); MEAN CORPUSCULAR VOLUME 94.6 fl (80.0-96.0); PLATELET COUNT, AUTOMATED 209 10^3/uL (150-450); RED BLOOD COUNT 3.54 10^6/uL (4.00-5.40); WHITE BLOOD COUNT 3.9 10^3/uL (4.0-10.0)
[2019-02-19 07:12] LABS: BLOOD UREA NITROGEN 13 MG/DL (7-18); CALCIUM LEVEL 10.3 MG/DL (8.8-10.2); CARBON DIOXIDE LEVEL 24 MEQ/L (21-32); CHLORIDE LEVEL 109 MEQ/L (98-107); CREATININE FOR GFR 0.71 MG/DL (0.55-1.30); GLOMERULAR FILTRATION RATE > 60.0 (>32); GLUCOSE, FASTING 106 MG/DL (70-100); POTASSIUM SERUM 4.2 MEQ/L (3.5-5.1); SODIUM LEVEL 142 MEQ/L (136-145)
[2019-02-19] MEDS: HumaLOG INSULIN (NovoLOG) PER UNIT SC SCH ×4 (07:30→21:01)
[2019-02-19] MEDS: levETIRAcetam 250MG TABLET (KEPPRA) PO SCH ×2 (08:24→21:00)
[2019-02-19] MEDS: OMEPRAZOLE 20 MG CAP PO SCH (08:24)
[2019-02-19] MEDS: ASPIRIN 81 MG CHEW TABLET PO SCH (08:24)
[2019-02-19] MEDS: SODIUM CHLORIDE 1 GM TAB PO SCH ×3 (08:24→17:14)
[2019-02-19] MEDS: ASCORBIC ACID 500 MG TAB PO SCH ×2 (08:25→21:00)
[2019-02-19] MEDS: FUROSEMIDE 10MG PER 1/2 TABLET PO SCH (08:25)
[2019-02-19] MEDS: FLUDROCORTISONE ACETATE 0.1 MG TAB PO SCH (08:25)
[2019-02-19] MEDS: LOSARTAN 50 MG TAB PO SCH (08:25)
[2019-02-19] MEDS: HEPARIN SOD (PORCINE) 5000 UNITS/ML VIAL SQ SCH ×2 (08:26→21:00)
[2019-02-19] MEDS: DOCUSATE SODIUM 100 MG CAP PO SCH ×3 (08:26→21:00)
[2019-02-19] MEDS: POTASSIUM CHLORIDE 10 MEQ SR TABLET PO SCH (08:26)
--- NOTE | 2019-02-19 09:48 | IPNPDOC ---
Date Seen The patient was seen on 02/19/19. Progress Note SUBJECTIVE: Patient reports no complaints the patient tells me that she is feeling quite well today. She denies any headache OBJECTIVE PHYSICAL EXAMINATION: VITAL SIGNS: Please see below. GENERAL: Very pleasant morbidly obese female sitting in a chair she does not appear to be in any acute distress HEENT: Cranial nerves II through XII grossly intact she has a bandage over her right neck it is clean dry and intact CARDIOVASCULAR: S1-S2 regular RESPIRATORY: Clear to auscultation bilaterally. ABDOMINAL: Morbidly obese bowel sounds present and soft nontender EXTREMITIES: Trace edema NEUROLOGICAL: No gross focal deficits LABORATORY DATA, IMAGING STUDIES, MICROBIOLOGY: Please see below. DVT prophylaxis ordered?: Heparin ASSESSMENT AND PLAN: This is a 78-year-old female with subarachnoid hemorrhage status post left ICA coiling 3. PROBLEMS: 1. Subarachnoid hemorrhage status post coiling to the left ICA: Appears be doing quite well at this time she is continued on Keppra 500 mg by mouth twice a day which is to be a 21 day course. She is also continued on nimodipine and has not demonstrated no vascular spasm up until this point. Patient is continued on aspirin 2. 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 She does have some trace edema. I'll increase her Lasix 20 daily and monitor volume status closely 3. GI bleed: Seen by GI recently felt to be secondary to hemorrhoids hemoglobin is stable 4. Dyslipidemia: Continue with statin 5. Hypertension: Continued on losartan nimodipine and furosemide, she is also on Florinef related to her hyponatremia which may be driving her blood pressure up somewhat and will require close monitoring 6. Diabetes: She is on sliding scale finger sticks uncontrolled 7. Diastolic congestive heart failure: Patient carries appears her documented diagnosis of this we'll monitor bone status closely while Florinef as outlined above I'm titrating up her Lasix today 8. Gastroesophageal reflux disease: Continue with PPI 9. Mood disorder: Continue his trazodone VS, I&O, 24H, Fishbone Vital Signs/I&O Vital Signs Date Time Temp Pulse Resp B/P (MAP) Pulse Ox O2 Delivery O2 Flow Rate FiO2 02/19/19 08:25 150/67 02/19/19 06:00 98.3 63 17 92 I&O- Last 24 Hours up to 6 AM 02/19/19 06:00 Intake Total 1560 ml Output Total 1300 ml Balance 260 ml Laboratory Data 24H LABS Laboratory Tests 2 02/18/19 11:57: Bedside Glucose (Misc Panel) 109 02/18/19 17:01: Bedside Glucose (Misc Panel) 108 02/18/19 21:33: Bedside Glucose (Misc Panel) 109 02/19/19 06:32: Bedside Glucose (Misc Panel) 98 02/19/19 06:35: Nucleated Red Blood Cells % (auto) 0.0, Anion Gap 9, Glomerular Filtration Rate > 60.0, Blood Urea Nitrogen 13, Creatinine 0.71, Sodium Level 142, Potassium Level 4.2, Chloride Level 109H, Carbon Dioxide Level 24, Calcium Level 10.3H CBC/BMP Laboratory Tests 02/19/19 06:35 Red Blood Count 3.54 L, Mean Corpuscular Volume 94.6, Mean Corpuscular Hemoglobin 29.4, Mean Corpuscular Hemoglobin Concent 31.0 L, Red Cell Distribu tion Width 14.9 H, Calcium Level 10.3 H Microbiology Microbiology 02/18/19 Urine Culture, Received Pending RUDI MELÉNDEZ MD Feb 19, 2019 09:48
[2019-02-19] MEDS ORDERED: FUROSEMIDE 10MG PER 1/2 TABLET PO ONE (12:00)
[2019-02-19 13:00] VITALS: BP 198/106
[2019-02-19 15:39] VITALS: BP 185/90
[2019-02-19 16:46] VITALS: BP 160/80
[2019-02-19 20:00] VITALS: BP 145/97
[2019-02-19] MEDS: traZODone 25MG PER 1/2 TABLET PO SCH (20:59)
[2019-02-19] MEDS: ATORVASTATIN 20 MG TAB PO SCH (20:59)
[2019-02-19] MEDS: SENNA 8.6 MG TAB (SENOKOT) PO SCH (21:00)
[2019-02-20] MEDS: niMODipine 30 MG CAP PO SCH ×5 (04:34→21:57)
[2019-02-20 06:00] VITALS: BP 135/63
[2019-02-20 06:42] LABS: HEMATOCRIT 32.2 % (36.0-47.0); HEMOGLOBIN 10.3 g/dl (12.0-15.5); MEAN CORPUSCULAR HEMOGLOBIN 30.2 pg (27.0-33.0); MEAN CORPUSCULAR VOLUME 94.4 fl (80.0-96.0); PLATELET COUNT, AUTOMATED 224 10^3/uL (150-450); RED BLOOD COUNT 3.41 10^6/uL (4.00-5.40); WHITE BLOOD COUNT 3.9 10^3/uL (4.0-10.0)
[2019-02-20] MEDS: HumaLOG INSULIN (NovoLOG) PER UNIT SC SCH ×4 (07:30→21:59)
[2019-02-20] MEDS: ASPIRIN 81 MG CHEW TABLET PO SCH (08:39)
[2019-02-20] MEDS: levETIRAcetam 250MG TABLET (KEPPRA) PO SCH ×2 (08:40→21:58)
[2019-02-20] MEDS: POTASSIUM CHLORIDE 10 MEQ SR TABLET PO SCH (08:40)
[2019-02-20] MEDS: OMEPRAZOLE 20 MG CAP PO SCH (08:40)
[2019-02-20] MEDS: LOSARTAN 50 MG TAB PO SCH (08:40)
[2019-02-20] MEDS: ASCORBIC ACID 500 MG TAB PO SCH ×2 (08:40→21:58)
[2019-02-20] MEDS: FLUDROCORTISONE ACETATE 0.1 MG TAB PO SCH (08:40)
[2019-02-20] MEDS: HEPARIN SOD (PORCINE) 5000 UNITS/ML VIAL SQ SCH ×2 (08:41→21:59)
[2019-02-20] MEDS: FUROSEMIDE 20 MG TAB PO SCH (08:41)
[2019-02-20] MEDS: DOCUSATE SODIUM 100 MG CAP PO SCH ×3 (08:41→21:58)
[2019-02-20] MEDS: SODIUM CHLORIDE 1 GM TAB PO SCH ×3 (08:41→17:10)
--- NOTE | 2019-02-20 13:39 | IPNPDOC ---
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 REVIEW OF SYSTEMS: The following is a completed review of systems and has been reviewed. Review of systems otherwise unremarkable. PAIN: Patient self reports no pain, no headache EYES: Negative for photophobia EARS, NOSE, & THROAT: denies dysphagia or throat pain CARDIOVASCULAR: denies chest pain or palpitations PULMONARY: Negative. Denies shortness of breath GASTROINTESTINAL: +soft stools GENITOURINARY: Negative for dysuria. MUSCULOSKELETAL: generalized weakness NEUROLOGICAL: +SAH with no focal deficits SKIN: intact PSYCHIATRIC: Unremarkable All other review of systems found to be negative. PHYSICAL EXAMINATION: VITAL SIGNS: Please see below. GENERAL: Pleasant and cooperative. No acute distress. HEENT: PERRL. Extraocular movements intact. Clear conjunctiva CARDIOVASCULAR: Regular rate and rhythm. No murmurs, rubs, or gallops LUNGS: Mostly clear to auscultation bilaterally with crackles in right lower base. No wheezes. No rhonchi ABDOMEN: Soft, nontender, nondistended. Positive bowel sounds. Normal active bowel sounds NEUROLOGICAL: Alert and oriented times three. Cranial nerves II through XII grossly intact. Sensation grossly intact +Luria, able to name objects EXTREMITIES: 5\5 strength bilateral upper extremities (no pronator drift), 5\5 strength right lower extremity. 5/5 strength in left lower extremity. (+) Ricardo's bilat SKIN: intact, warm well perfused ASSESSMENT:78-year-old F with past medical history of HTN and diastolic CHF who presents status post SAH s/p right MCA embolization. PLAN: 1. 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 Castillo, neurosurgical resident as not documented in discharge summary or NATTY notes 3. CArdiac: pmh diastolic CHF c/u ASA and lasix dose increased to 20mg - medicine recs appreciated -hyponatremia likely due to SIADH in setting of SAH, c/u salt tabs and florinef started on admission, Na today 141, will d/c florinef and monitor- mediciner ecs apprecaited -pmh HLD c/u statin therapy -pmh HTn c/u losartan 4. Resp: stable encourage incentive spirometry 5. Endo: pmh DM c/u insulin coverage, will hold metformin-stable 6. GI ppx: omeprazole, pmh hemorrhoids will adjust bowel care to avoid constipation and straining 7. DVT ppx: heparin and TEDs- will order Dopplers 8. : admission Ua and Ucx positive for Staph Simulans, patient not complaining of dysuria but does have frequency. possibly from Lasix, however was confused this morning with slightly low wbc count, will treat with Macrobid x7 days , monitor PVRs 9. Extremities: bilateral leg swelling- Acewrap and elevate 9. Dispo: TBD Allergies Coded Allergies: lisinopril (Verified Allergy, Severe, angio edema, 02/01/19) Penicillins (Verified Allergy, Intermediate, HIVES, 02/01/19) lactose (Verified Adverse Reaction, Mild, GI upset, 02/01/19) Vital Signs Vital Signs Date Time Temp Pulse Resp B/P (MAP) Pulse Ox O2 Delivery O2 Flow Rate FiO2 02/20/19 08:40 135/63 02/20/19 06:00 99.3 66 18 93 Laboratory Data CBC/BMP Laboratory Tests 02/20/19 06:15 Red Blood Count 3.41 L, Mean Corpuscular Volume 94.4, Mean Corpuscular Hemoglobin 30.2, Mean Corpuscular Hemoglobin Concent 32.0, Red Cell Distribution Width 14.8 H Labs 24H Laboratory Tests 2 02/19/19 16:55: Bedside Glucose (Misc Panel) 100 02/19/19 19:33: Bedside Glucose (Misc Panel) 139H 02/20/19 06:15: Nucleated Red Blood Cells % (auto) 0.0 Microbiology Microbiology 02/18/19 Urine Culture - Final, Complete Staphylococcus Simulans Current Medications Current Medications Current Medications Acetaminophen (Tylenol Tab) 650 mg Q4HP PRN PO fever/MILD PAIN (PS 1-4) Last administered on 02/18/19at 21:36; Start 02/17/19 at 17:00 Al Hydrox/Mg Hydrox/Simethicone (Mylanta) 30 ml Q4HP PRN PO DYSPEPSIA; Start 02/17/19 at 17:00 Ascorbic Acid (Vitamin C) 500 mg BID PO Last administered on 02/20/19at 08:40; Start 02/17/19 at 21:00 Aspirin (Aspirin Chewable) 81 mg DAILY PO Last administered on 02/20/19at 08:39; Start 02/18/19 at 09:00 Atorvastatin Calcium (Lipitor) 40 mg QHS PO Last administered on 02/19/19at 20:59; Start 02/17/19 at 21:00 Bisacodyl (Dulcolax Suppository) 10 mg DAILYPRN PRN [place] CONSTIPATION; Start 02/17/19 at 17:00 Dextrose (Dextrose 50%) 25 ml ASDIRECTED PRN IV SEE LABEL COMMENTS; Start 02/17/19 at 17:00 Docusate Sodium (Colace) 100 mg BID PO ; Start 02/17/19 at 21:00; Stop 02/17/19 at 21:00; Status DC Docusate Sodium (Colace) 100 mg TID PO Last administered on 02/20/19at 08:41; Start 02/17/19 at 16:00 Fludrocortisone Acetate (Florinef) 0.1 mg DAILY PO Last administered on 02/20/19at 08:40; Start 02/18/19 at 09:00 Furosemide (Lasix) 10 mg DAILY PO Last administered on 02/19/19at 08:25; Start 02/18/19 at 09:00; Stop 02/19/19 at 09:48; Status DC Furosemide (Lasix) 20 mg DAILY PO Last administered on 02/20/19at 08:41; Start 02/20/19 at 09:00 Glucagon (Glucagon) 1 mg ASDIRECTED PRN SC SEE LABEL COMMENTS; Start 02/17/19 at 17:00 Glucose (Glucose) 16 GM ASDIRECTED PRN PO SEE LABEL COMMENTS; Start 02/17/19 at 17:00 Heparin Sodium (Porcine) (Heparin) 5,000 units Q12H SC ; Start 02/17/19 at 17:00; Status UNV Heparin Sodium (Porcine) (Heparin) 5,000 units Q12H SQ Last administered on 02/20/19at 08:41; Start 02/17/19 at 21:00 Home Med (Med Rec Complete!) ASDIRECTED XX ; Start 02/17/19 at 16:15; Stop 02/06 12/27 at 16:16; Status DC Insulin Human Lispro (HumaLOG INSULIN) SEE PROTOCOL TABLE QHS SC ; Start 02/17/19 at 21:00 Insulin Human Lispro (HumaLOG INSULIN) See Protocol Table AC SC Last administered on 02/20/19at 12:47; Start 02/18/19 at 07:30 Levetiracetam (Keppra) 500 mg BID PO Last administered on 02/20/19 08:40; Start 02/17/19 at 21:00; Stop 02/23/19 at 09:01 Losartan Potassium (Cozaar) 100 mg DAILY PO Last administered on 02/20/19at 08:40; Start 02/18/19 at 09:00 Miscellaneous (Unresolved Patient Own Med Order) SEE LABEL COMMENTS DAILY XX ; Start 02/17/19 at 09:00 Nimodipine (Nimotop) 60 mg Q4H PO Last administered on 02/20/19at 12:47; Start 02/17/19 at 20:00; Stop 02/23/19 at 16:01 Nystatin (Mycostatin Powder, Nystop) 1 dose BIDP PRN TOP RASH; Start 02/17/19 at 16:30 Omeprazole (PriLOSEC) 20 mg DAILY PO Last administered on 02/20/19at 08:40; Start 02/18/19 at 09:00 Ondansetron HCl (Zofran) 4 mg Q6HP PRN PO NAUSEA; Start 02/17/19 at 17:00 Oxycodone HCl (Roxicodone, Oxyir) 5 mg Q4HP PRN PO PAIN Last administered on 02/20/19at 02:25; Start 02/17/19 at 16:30 Pantoprazole Sodium (Protonix) 40 mg DAILY PO ; Start 02/18/19 at 09:00; Status UNV Patient Own Medication (Patient'S Own Med) Travaprost 0.004% - 1 DROP QHS OU ; Start 02/17/19 at 21:00; Status UNV Potassium Chloride (Micro-K Extencaps) 20 meq DAILY PO Last administered on 02/20/19 08:40; Start 02/18/19 at 09:00 Senna (Senokot) 1 tab QHS PO Last administered on 02/19/19at 21:00; Start 02/17/19 at 21:00 Sodium Chloride (Sodium Chloride) 2 gm AC PO Last administered on 02/20/19at 12:47; Start 02/17/19 at 17:30 Trazodone HCl (Desyrel) 25 mg QHS PO Last administered on 02/19/19at 20:59; Start 02/17/19 at 21:00 MEGHANN SUÁREZ MD Feb 20, 2019 13:39
[2019-02-20 14:00] VITALS: BP 173/79
--- NOTE | 2019-02-20 15:45 | IPNPDOC ---
Date Seen The patient was seen on 02/20/19. Progress Note SUBJECTIVE: Patient is a 78F who is transferred here from [facility] post R. MCA coiling for SAH for continued rehab. Interval history: Patient was found sitting up on bed today, comfortable. Denies any particular complaints at that time and reports that she enjoys going to PT and that she is doing well with it. OBJECTIVE PHYSICAL EXAMINATION: VITAL SIGNS: Please see below. General: No acute distress, Alert Eyes: Normal sclera, EOMI, ARSALAN HENT: Atraumatic, neck supple, moist mucous membranes Cardiovascular: Normal rate, normal rhythm. No murmurs appreciated. Pulmonary: Clear to auscultation b/l, no wheezing GI: Soft, nontender, nondistended Skin: Warm and dry Neuro: CN grossly intact. No focal deficits. LABORATORY DATA, IMAGING STUDIES, MICROBIOLOGY: Please see below. DVT prophylaxis ordered?: HSQ ASSESSMENT AND PLAN: 1. Subarachnoid Hemorrhage- -s/p Coiling to L. ICA. -c/w Keppra for 21 day course and Nimodipine to prevent vasopasm. -Also on ASA. 2. Hyponatremia resolved. -Likely SIADH - Have been on Florinef. Discontinued today. - Also on salt tablets. consider discontinuing if Na continues to increase. - Mild LE edema, likely slightly fluid overloaded. 3. GI bleed - recent bleed noted and had been seen by GI, thought to be hemorrhoids. - Hb had been stable. continue to monitor. 4. HTN - c/w home medications. 5. HFpEF - Appear to be slightly hypervolemic. - c/w Lasix. 6. GERD - c/w PPI. 7. DM - continue Accuchecks monitoring. - maintain on ISS. 8. UTI - Urine culture + staph simulans >100,000 CFU. - No dysuria but does have urinary frequency but patient is on Lasix. - Started on macrobid for treatment. VS, I&O, 24H, Fishbone Vital Signs/I&O Vital Signs Date Time Temp Pulse Resp B/P (MAP) Pulse Ox O2 Delivery O2 Flow Rate FiO2 02/20/19 14:00 98.6 76 18 173/79 (110) 97 I&O- Last 24 Hours up to 6 AM 02/20/19 05:59 Intake Total 1560 ml Output Total 1200 ml Balance 360 ml Laboratory Data 24H LABS Laboratory Tests 2 02/19/19 16:55: Bedside Glucose (Misc Panel) 100 02/19/19 19:33: Bedside Glucose (Misc Panel) 139H 02/20/19 06:15: Nucleated Red Blood Cells % (auto) 0.0 CBC/BMP Laboratory Tests 02/20/19 06:15 Red Blood Count 3.41 L, Mean Corpuscular Volume 94.4, Mean Corpuscular Hemoglobin 30.2, Mean Corpuscular Hemoglobin Concent 32.0, Red Cell Distribution Width 14.8 H Microbiology Microbiology 02/18/19 Urine Culture - Final, Complete Staphylococcus Simulans ROSA MOTA MD Feb 20, 2019 15:45
--- NOTE | 2019-02-20 15:57 | REP ---
Duplex extremity venous ultrasound: Bilateral lower extremities. History: Bilateral lower extremity swelling. Rule out DVT. Findings: The deep veins are anechoic and fully compressible from the groin to the popliteal fossa in the left and right lower extremity. Color flow imaging is homogeneous. Spectral Doppler interrogation demonstrates intact respiratory variation in flow and normal manual augmentation of flow. There is no evidence of deep vein thrombosis. Impression: Negative bilateral lower extremity duplex venous ultrasound. No evidence of deep vein thrombosis. Electronically Signed by John Lassiter MD 02/20/2019 03:48 P
[2019-02-20] MEDS: NITROFURANTOIN (MACROBID) 100 MG CAP PO SCH ×2 (17:20→21:58)
[2019-02-20 20:00] VITALS: BP 169/86
[2019-02-20] MEDS: ATORVASTATIN 20 MG TAB PO SCH (21:57)
[2019-02-20] MEDS: SENNA 8.6 MG TAB (SENOKOT) PO SCH (21:58)
[2019-02-20] MEDS: traZODone 25MG PER 1/2 TABLET PO SCH (21:58)
[2019-02-20] MEDS: [UNRECOGNIZED DRUG - OTHER] OU SCH (21:59)
[2019-02-21] MEDS: niMODipine 30 MG CAP PO SCH ×7 (00:50→23:39)
[2019-02-21 06:00] VITALS: BP 164/77
[2019-02-21 07:10] LABS: BLOOD UREA NITROGEN 11 MG/DL (7-18); CALCIUM LEVEL 10.7 MG/DL (8.8-10.2); CARBON DIOXIDE LEVEL 28 MEQ/L (21-32); CHLORIDE LEVEL 107 MEQ/L (98-107); CREATININE FOR GFR 0.69 MG/DL (0.55-1.30); GLOMERULAR FILTRATION RATE > 60.0 (>32); GLUCOSE, FASTING 111 MG/DL (70-100); POTASSIUM SERUM 3.7 MEQ/L (3.5-5.1); SODIUM LEVEL 141 MEQ/L (136-145)
[2019-02-21] MEDS: HumaLOG INSULIN (NovoLOG) PER UNIT SC SCH ×4 (07:30→20:46)
[2019-02-21 08:00] VITALS: BP 177/81
[2019-02-21] MEDS: LOSARTAN 50 MG TAB PO SCH (08:21)
[2019-02-21] MEDS: SODIUM CHLORIDE 1 GM TAB PO SCH ×3 (08:22→17:25)
[2019-02-21] MEDS: FUROSEMIDE 20 MG TAB PO SCH (08:22)
[2019-02-21] MEDS: DOCUSATE SODIUM 100 MG CAP PO SCH ×3 (08:22→20:41)
[2019-02-21] MEDS: ASPIRIN 81 MG CHEW TABLET PO SCH (08:22)
[2019-02-21] MEDS: POTASSIUM CHLORIDE 10 MEQ SR TABLET PO SCH (08:22)
[2019-02-21] MEDS: levETIRAcetam 250MG TABLET (KEPPRA) PO SCH ×2 (08:22→20:40)
[2019-02-21] MEDS: NITROFURANTOIN (MACROBID) 100 MG CAP PO SCH ×2 (08:22→20:40)
[2019-02-21] MEDS: OMEPRAZOLE 20 MG CAP PO SCH (08:22)
[2019-02-21] MEDS: ASCORBIC ACID 500 MG TAB PO SCH ×2 (08:22→20:41)
[2019-02-21] MEDS: HEPARIN SOD (PORCINE) 5000 UNITS/ML VIAL SQ SCH ×2 (08:23→20:41)
--- NOTE | 2019-02-21 09:57 | IPNPDOC ---
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 REVIEW OF SYSTEMS: The following is a completed review of systems and has been reviewed. Review of systems otherwise unremarkable. PAIN: Patient self reports no pain, no headache EYES: Negative for photophobia EARS, NOSE, & THROAT: denies dysphagia or throat pain CARDIOVASCULAR: denies chest pain or palpitations PULMONARY: Negative. Denies shortness of breath GASTROINTESTINAL: +soft stools GENITOURINARY: Negative for dysuria. MUSCULOSKELETAL: generalized weakness NEUROLOGICAL: +SAH with no focal deficits SKIN: intact PSYCHIATRIC: Unremarkable All other review of systems found to be negative. PHYSICAL EXAMINATION: VITAL SIGNS: Please see below. GENERAL: Pleasant and cooperative. No acute distress. HEENT: PERRL. Extraocular movements intact. Clear conjunctiva CARDIOVASCULAR: Regular rate and rhythm. No murmurs, rubs, or gallops LUNGS: Mostly clear to auscultation bilaterally with crackles in right lower base. No wheezes. No rhonchi ABDOMEN: Soft, nontender, nondistended. Positive bowel sounds. Normal active bowel sounds NEUROLOGICAL: Alert and oriented times three. Cranial nerves II through XII grossly intact. Sensation grossly intact +Luria, able to name objects EXTREMITIES: 5\5 strength bilateral upper extremities (no pronator drift), 5\5 strength right lower extremity. 5/5 strength in left lower extremity. (+) Ricardo's bilat with swelling SKIN: intact, warm well perfused ASSESSMENT:78-year-old F with past medical history of HTN and diastolic CHF who presents status post SAH s/p right MCA embolization. PLAN: 1. 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 Castillo, neurosurgical resident as not documented in discharge summary or NATTY notes 3. CArdiac: pmh diastolic CHF c/u ASA and lasix dose increased to 20mg - medicine recs appreciated -hyponatremia likely due to SIADH in setting of SAH, s/p florinef and tapering NaCl tabs to 1mg TID today, c/u monitor- medicine recs appreciated -pmh HLD c/u statin therapy -pmh HTn increased losartan to 125mg for elevated BPs 4. Resp: stable encourage incentive spirometry 5. Endo: pmh DM c/u insulin coverage, will hold metformin-stable 6. GI ppx: omeprazole, pmh hemorrhoids will adjust bowel care to avoid constipation and straining 7. DVT ppx: heparin and TEDs- Dopplers negative 8. : admission Ua and Ucx positive for Staph Simulans, low grade fevers with urinary frequency, c/u Macrobid x7 days , monitor PVRs 9. Extremities: bilateral leg swelling- c/u Acewrap and elevate, Lasix dose increased today per medicine to 40mg daily 9. Dispo: 02/28/19 to home, progressing towards goals Allergies Coded Allergies: lisinopril (Verified Allergy, Severe, angio edema, 02/01/19) Penicillins (Verified Allergy, Intermediate, HIVES, 02/01/19) lactose (Verified Adverse Reaction, Mild, GI upset, 02/01/19) Vital Signs Vital Signs Date Time Temp Pulse Resp B/P (MAP) Pulse Ox O2 Delivery O2 Flow Rate FiO2 02/21/19 08:21 177/81 02/21/19 08:00 74 02/21/19 06:00 99.0 18 94 Laboratory Data CBC/BMP Laboratory Tests 02/21/19 06:14 Calcium Level 10.7 H Labs 24H Laboratory Tests 2 02/20/19 12:21: Bedside Glucose (Misc Panel) 111H 02/20/19 16:58: Bedside Glucose (Misc Panel) 100 02/20/19 21:03: Bedside Glucose (Misc Panel) 93 02/21/19 06:14: Anion Gap 6L, Glomerular Filtration Rate > 60.0, Blood Urea Nitrogen 11, Creatinine 0.69, Sodium Level 141, Potassium Level 3.7, Chloride Level 107, Carbon Dioxide Level 28, Calcium Level 10.7H Microbiology Microbiology 02/18/19 Urine Culture - Final, Complete Staphylococcus Simulans Current Medications Current Medications Current Medications Acetaminophen (Tylenol Tab) 650 mg Q4HP PRN PO fever/MILD PAIN (PS 1-4) Last administered on 02/18/19at 21:36; Start 02/17/19 at 17:00 Al Hydrox/Mg Hydrox/Simethicone (Mylanta) 30 ml Q4HP PRN PO DYSPEPSIA; Start 02/17/19 at 17:00 Ascorbic Acid (Vitamin C) 500 mg BID PO Last administered on 02/21/19at 08:22; Start 02/17/19 at 21:00 Aspirin (Aspirin Chewable) 81 mg DAILY PO Last administered on 02/21/19at 08:22; Start 02/18/19 at 09:00 Atorvastatin Calcium (Lipitor) 40 mg QHS PO Last administered on 02/20/19at 21:57; Start 02/17/19 at 21:00 Bisacodyl (Dulcolax Suppository) 10 mg DAILYPRN PRN [place] CONSTIPATION; Start 02/17/19 at 17:00 Dextrose (Dextrose 50%) 25 ml ASDIRECTED PRN IV SEE LABEL COMMENTS; Start 02/17/19 at 17:00 Docusate Sodium (Colace) 100 mg BID PO ; Start 02/17/19 at 21:00; Stop 02/17/19 at 21:00; Status DC Docusate Sodium (Colace) 100 mg TID PO Last administered on 02/21/19at 08:22; Start 02/17/19 at 16:00 Fludrocortisone Acetate (Florinef) 0.1 mg DAILY PO Last administered on 02/20/19at 08:40; Start 02/18/19 at 09:00; Stop 02/20/19 at 13:33; Status DC Furosemide (Lasix) 10 mg DAILY PO Last administered on 02/19/19at 08:25; Start 02/18/19 at 09:00; Stop 02/19/19 at 09:48; Status DC Furosemide (Lasix) 20 mg DAILY PO Last administered on 02/21/19at 08:22; Start 02/20/19 at 09:00 Glucagon (Glucagon) 1 mg ASDIRECTED PRN SC SEE LABEL COMMENTS; Start 02/17/19 at 17:00 Glucose (Glucose) 16 GM ASDIRECTED PRN PO SEE LABEL COMMENTS; Start 02/17/19 at 17:00 Heparin Sodium (Porcine) (Heparin) 5,000 units Q12H SC ; Start 02/17/19 at 17:00; Status UNV Heparin Sodium (Porcine) (Heparin) 5,000 units Q12H SQ Last administered on 02/21/19at 08:23; Start 02/17/19 at 21:00 Home Med (Med Rec Complete!) ASDIRECTED XX ; Start 02/17/19 at 16:15; Stop 02/17/19 at 16:16; Status DC Insulin Human Lispro (HumaLOG INSULIN) SEE PROTOCOL TABLE QHS SC ; Start 02/17/19 at 21:00 Insulin Human Lispro (HumaLOG INSULIN) See Protocol Table AC SC Last administered on 02/21/19at 07:30; Start 02/18/19 at 07:30 Levetiracetam (Keppra) 500 mg BID PO Last administered on 02/21/19 08:22; Start 02/17/19 at 21:00; Stop 02/23/19 at 09:01 Losartan Potassium (Cozaar) 100 mg DAILY PO Last administered on 02/21/19at 08:21; Start 02/18/19 at 09:00 Miscellaneous (Unresolved Patient Own Med Order) SEE LABEL COMMENTS DAILY XX ; Start 02/17/19 at 09:00; Stop 02/20/19 at 14:47; Status DC Nimodipine (Nimotop) 60 mg Q4H PO Last administered on 02/21/19at 08:22; Start 02/17/19 at 20:00; Stop 02/23/19 at 16:01 Nitrofurantoin Monoh/Nitrofur Macro (Macrobid) 100 mg BID PO Last administered on 02/21/19at 08:22; Start 02/20/19 at 14:00 Nystatin (Mycostatin Powder, Nystop) 1 dose BIDP PRN TOP RASH; Start 02/17/19 at 16:30 Omeprazole (PriLOSEC) 20 mg DAILY PO Last administered on 02/21/19at 08:22; Start 02/18/19 at 09:00 Ondansetron HCl (Zofran) 4 mg Q6HP PRN PO NAUSEA; Start 02/17/19 at 17:00 Oxycodone HCl (Roxicodone, Oxyir) 5 mg Q4HP PRN PO PAIN Last administered on 02/20/19at 02:25; Start 02/17/19 at 16:30 Pantoprazole Sodium (Protonix) 40 mg DAILY PO ; Start 02/18/19 at 09:00; Status UNV Patient Own Medication (Patient'S Own Med) Travaprost 0.004% - 1 DROP QHS OU Last administered on 02/20/19 21:59; Start 02/20/19 at 21:00 Potassium Chloride (Micro-K Extencaps) 20 meq DAILY PO Last administered on 02/21/19 08:22; Start 02/18/19 at 09:00 Senna (Senokot) 1 tab QHS PO Last administered on 02/20/19 21:58; Start 02/17/19 at 21:00 Sodium Chloride (Sodium Chloride) 2 gm AC PO Last administered on 02/21/19 08 :22; Start 02/17/19 at 17:30 Trazodone HCl (Desyrel) 25 mg QHS PO Last administered on 02/20/19 21:58; Start 02/17/19 at 21:00 MEGHANN SUÁREZ MD Feb 21, 2019 09:57
[2019-02-21] MEDS ORDERED: PILL CRUSHER/CUTTER 1 EACH XX PRN (10:15)
--- NOTE | 2019-02-21 13:44 | IPNPDOC ---
Date Seen The patient was seen on 02/21/19. Progress Note SUBJECTIVE: Patient is a 78F who is transferred here from [facility] post R. MCA coiling for SAH for continued rehab. Interval history: Patient reports LE swelling after sitting too long but otherwise states that she feels comfortable and enjoys going to PT. Denies any SOB. OBJECTIVE PHYSICAL EXAMINATION: VITAL SIGNS: Please see below. General: No acute distress, Alert Eyes: Normal sclera, EOMI, ARSALAN HENT: Atraumatic, neck supple, moist mucous membranes Cardiovascular: Normal rate, normal rhythm. No murmurs appreciated. LE nonpitting edema around ankles and below. Pulmonary: Clear to auscultation b/l, no wheezing GI: Soft, nontender, nondistended Skin: Warm and dry Neuro: CN grossly intact. No focal deficits. LABORATORY DATA, IMAGING STUDIES, MICROBIOLOGY: Please see below. DVT prophylaxis ordered?: HSQ ASSESSMENT AND PLAN: 1. 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 -c/w Keppra for 21 day course and Nimodipine to prevent vasopasm. -Also on ASA. 2. Hyponatremia resolved. - Likely SIADH - Have been on Florinef. Discontinue. - Also on salt tablets, Na had been stable. consider discontinuing if Na continues to increase. - LE dependent nonpitting edema. 3. GI bleed - recent bleed noted and had been seen by GI, thought to be hemorrhoids. - Hb had been stable. continue to monitor. 4. HTN - c/w home medications. 5. HFpEF - Appear to be hypervolemic with dependent LE edema. - Increase Lasix from 20 to 40 mg PO daily. Advised to keep legs elevated while sitting. 6. GERD - c/w PPI. 7. DM - continue Accuchecks monitoring. - maintain on ISS. 8. UTI - Urine culture + staph simulans >100,000 CFU. - No dysuria but does have urinary frequency but patient is on Lasix. - c/w macrobid for treatment. VS, I&O, 24H, Fishbone Vital Signs/I&O Vital Signs Date Time Temp Pulse Resp B/P (MAP) Pulse Ox O2 Delivery O2 Flow Rate FiO2 02/21/19 08:21 177/81 02/21/19 08:00 74 02/21/19 06:00 99.0 18 94 I&O- Last 24 Hours up to 6 AM 02/21/19 06:00 Intake Total 1440 ml Balance 1440 ml Laboratory Data 24H LABS Laboratory Tests 2 02/20/19 16:58: Bedside Glucose (Misc Panel) 100 02/20/19 21:03: Bedside Glucose (Misc Panel) 93 02/21/19 06:14: Anion Gap 6L, Glomerular Filtration Rate > 60.0, Blood Urea Nitrogen 11, Creatinine 0.69, Sodium Level 141, Potassium Level 3.7, Chloride Level 107, Carbon Dioxide Level 28, Calcium Level 10.7H 02/21/19 11:50: Bedside Glucose (Misc Panel) 96 CBC/BMP Laboratory Tests 02/21/19 06:14 Calcium Level 10.7 H Microbiology Microbiology 02/18/19 Urine Culture - Final, Complete Staphylococcus Simulans ROSA MOTA MD Feb 21, 2019 13:44
[2019-02-21 14:00] VITALS: BP 179/83
[2019-02-21] MEDS: FUROSEMIDE 40 MG TAB PO SCH (14:27)
[2019-02-21 20:00] VITALS: BP 142/71
[2019-02-21] MEDS: ATORVASTATIN 20 MG TAB PO SCH (20:40)
[2019-02-21] MEDS: traZODone 25MG PER 1/2 TABLET PO SCH (20:40)
[2019-02-21] MEDS: [UNRECOGNIZED DRUG - OTHER] OU SCH (20:41)
[2019-02-21] MEDS: SENNA 8.6 MG TAB (SENOKOT) PO SCH (20:41)
[2019-02-22] MEDS: niMODipine 30 MG CAP PO SCH ×5 (04:05→20:37)
[2019-02-22 06:00] VITALS: BP 148/74
[2019-02-22] MEDS: HumaLOG INSULIN (NovoLOG) PER UNIT SC SCH ×2 (07:30→21:00)
[2019-02-22] MEDS: SODIUM CHLORIDE 1 GM TAB PO SCH ×3 (08:31→17:05)
[2019-02-22] MEDS: levETIRAcetam 250MG TABLET (KEPPRA) PO SCH ×2 (08:31→20:38)
[2019-02-22] MEDS: DOCUSATE SODIUM 100 MG CAP PO SCH ×3 (08:31→20:38)
[2019-02-22] MEDS: NITROFURANTOIN (MACROBID) 100 MG CAP PO SCH ×2 (08:32→20:37)
[2019-02-22] MEDS: ASCORBIC ACID 500 MG TAB PO SCH ×2 (08:32→20:38)
[2019-02-22] MEDS: OMEPRAZOLE 20 MG CAP PO SCH (08:32)
[2019-02-22] MEDS: LOSARTAN 50 MG TAB PO SCH (08:32)
[2019-02-22] MEDS: ASPIRIN 81 MG CHEW TABLET PO SCH (08:32)
[2019-02-22] MEDS: FUROSEMIDE 40 MG TAB PO SCH (08:32)
[2019-02-22] MEDS: HEPARIN SOD (PORCINE) 5000 UNITS/ML VIAL SQ SCH ×2 (08:33→20:37)
[2019-02-22] MEDS: POTASSIUM CHLORIDE 10 MEQ SR TABLET PO SCH (08:33)
--- NOTE | 2019-02-22 12:03 | IPNPDOC ---
PM&R Progress Note DATE OF SERVICE: Feb 22, 2019 [employer] Progress Note Subjective: Patient seen in room stating she occasionally feels dizzy when she rolls over in bed, but this lasts a few seconds. She otherwise feels well. REVIEW OF SYSTEMS: The following is a completed review of systems and has been reviewed. Review of systems otherwise unremarkable. PAIN: Patient self reports no pain, no headache EYES: Negative for photophobia EARS, NOSE, & THROAT: denies dysphagia or throat pain CARDIOVASCULAR: denies chest pain or palpitations PULMONARY: Negative. Denies shortness of breath GASTROINTESTINAL: +soft stools GENITOURINARY: Negative for dysuria. MUSCULOSKELETAL: generalized weakness NEUROLOGICAL: +SAH with no focal deficits SKIN: intact PSYCHIATRIC: Unremarkable All other review of systems found to be negative. PHYSICAL EXAMINATION: VITAL SIGNS: Please see below. GENERAL: Pleasant and cooperative. No acute distress. HEENT: PERRL. Extraocular movements intact. Clear conjunctiva CARDIOVASCULAR: Regular rate and rhythm. No murmurs, rubs, or gallops LUNGS: Mostly clear to auscultation bilaterally with crackles in right lower base. No wheezes. No rhonchi ABDOMEN: Soft, nontender, nondistended. Positive bowel sounds. Normal active bowel sounds NEUROLOGICAL: Alert and oriented times three. Cranial nerves II through XII grossly intact. Sensation grossly intact +Luria, able to name objects EXTREMITIES: 5\5 strength bilateral upper extremities (no pronator drift), 5\5 strength right lower extremity. 5/5 strength in left lower extremity. (+) Ricardo's bilat with swelling SKIN: intact, warm well perfused ASSESSMENT:78-year-old F with past medical history of HTN and diastolic CHF who presents status post SAH s/p right MCA embolization. PLAN: 1. 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 Neuro: s/p SAH with embolization of right MCA bifurcation on 02/02/19, still has a left extra cranial ICA aneurysm- finishing up 21 day course of Keppra for seizure prophylaxis and Nifedipine for vasospasm prevention- f/u with neurosur abdirahman -ASA restarted on day of discharge for asymptomatic left extra cranial ICA aneurysm- confirmed with Dr. Castillo, neurosurgical resident as not documented in discharge summary or NATTY notes 3. CArdiac: pmh diastolic CHF c/u ASA and lasix dose increased to 40mg - medicine recs appreciated -hyponatremia likely due to SIADH in setting of SAH, s/p florinef and tapering NaCl tabs to 1mg TID today, c/u monitor- medicine recs appreciated -pmh HLD c/u statin therapy -pmh HTn increased losartan to 125mg for elevated BPs-better today 4. Resp: stable encourage incentive spirometry 5. Endo: pmh DM c/u to hold metformin-stable off metformin, will trial off sliding scale coverage and monitor BID FS with plan to d/c off all diabetic meds if possible 6. GI ppx: omeprazole, pmh hemorrhoids will adjust bowel care to avoid constipation and straining-stable 7. DVT ppx: heparin and TEDs- Dopplers negative 8. : admission Ua and Ucx positive for Staph Simulans, low grade fevers with urinary frequency, c/u Macrobid x7 days , monitor PVRs 9. Extremities: bilateral leg swelling- c/u Acewrap and elevate, c/u Lasix 9. Dispo: 02/28/19 to home, progressing towards goals Allergies Coded Allergies: lisinopril (Verified Allergy, Severe, angio edema, 02/01/19) Penicillins (Verified Allergy, Intermediate, HIVES, 02/01/19) lactose (Verified Adverse Reaction, Mild, GI upset, 02/01/19) Vital Signs Vital Signs Date Time Temp Pulse Resp B/P (MAP) Pulse Ox O2 Delivery O2 Flow Rate FiO2 02/22/19 08:32 148/74 02/22/19 06:00 97.7 63 18 95 Laboratory Data Labs 24H Laboratory Tests 2 02/21/19 16:41: Bedside Glucose (Misc Panel) 120H 02/21/19 19:46: Bedside Glucose (Misc Panel) 135H 02/22/19 06:32: Bedside Glucose (Misc Panel) 118H 02/22/19 11:23: Bedside Glucose (Misc Panel) 105 Microbiology Microbiology 02/18/19 Urine Culture - Final, Complete Staphylococcus Simulans Current Medications Current Medications Current Medications Acetaminophen (Tylenol Tab) 650 mg Q4HP PRN PO fever/MILD PAIN (PS 1-4) Last administered on 02/18/19at 21:36; Start 02/17/19 at 17:00 Al Hydrox/Mg Hydrox/Simethicone (Mylanta) 30 ml Q4HP PRN PO DYSPEPSIA; Start 02/17/19 at 17:00 Ascorbic Acid (Vitamin C) 500 mg BID PO Last administered on 02/22/19at 08:32; Start 02/17/19 at 21:00 Aspirin (Aspirin Chewable) 81 mg DAILY PO Last administered on 02/22/19at 08:32; Start 02/18/19 at 09:00 Atorvastatin Calcium (Lipitor) 40 mg QHS PO Last administered on 02/21/19at 20:40; Start 02/17/19 at 21:00 Bisacodyl (Dulcolax Suppository) [address] CONSTIPATION; Start 02/17/19 at 17:00 Dextrose (Dextrose 50%) 25 ml ASDIRECTED PRN IV SEE LABEL COMMENTS; Start 02/17/19 at 17:00 Docusate Sodium (Colace) 100 mg BID PO ; Start 02/17/19 at 21:00; Stop 02/17/19 at 21:00; Status DC Docusate Sodium (Colace) 100 mg TID PO Last administered on 02/22/19at 08:31; Start 02/17/19 at 16:00 Fludrocortisone Acetate (Florinef) 0.1 mg DAILY PO Last administered on 02/20/19at 08:40; Start 02/18/19 at 09:00; Stop 02/20/19 at 13:33; Status DC Furosemide (Lasix) 10 mg DAILY PO Last administered on 02/19/19at 08:25; Start 02/18/19 at 09:00; Stop 02/19/19 at 09:48; Status DC Furosemide (Lasix) 20 mg DAILY PO Last administered on 02/21/19at 08:22; Start 02/20/19 at 09:00; Stop 02/21/19 at 13:43; Status DC Furosemide (Lasix) 40 mg DAILY PO Last administered on 02/22/19at 08:32; Start 02/21/19 at 13:45 Glucagon (Glucagon) 1 mg ASDIRECTED PRN SC SEE LABEL COMMENTS; Start 02/17/19 at 17:00 Glucose (Glucose) 16 GM ASDIRECTED PRN PO SEE LABEL COMMENTS; Start 02/17/19 at 17:00 Heparin Sodium (Porcine) (Heparin) 5,000 units Q12H SC ; Start 02/17/19 at 17:00; Status UNV Heparin Sodium (Porcine) (Heparin) 5,000 units Q12H SQ Last administered on 02/22/19at 08:33; Start 02/17/19 at 21:00 Home Med (Med Rec Complete!) ASDIRECTED XX ; Start 02/17/19 at 16:15; Stop 02/17/19 at 16:16; Status DC Insulin Human Lispro (HumaLOG INSULIN) SEE PROTOCOL TABLE QHS SC ; Start 02/17/19 at 21:00 Insulin Human Lispro (HumaLOG INSULIN) See Protocol Table AC SC Last administered on 02/22/19at 07:30; Start 02/18/19 at 07:30 Levetiracetam (Keppra) 500 mg BID PO Last administered on 02/22/19at 08:31; Start 02/17/19 at 21:00; Stop 02/23/19 at 09:01 Losartan Potassium (Cozaar) 100 mg DAILY PO Last administered on 02/21/19at 08:21; Start 02/18/19 at 09:00; Stop 02/21/19 at 09:57; Status DC Losartan Potassium (Cozaar) 125 mg DAILY PO Last administered on 02/22/19at 08:32; Start 02/22/19 at 09:00 Miscellaneous (Unresolved Patient Own Med Order) SEE LABEL COMMENTS DAILY XX ; Start 02/17/19 at 09:00; Stop 02/20/19 at 14:47; Status DC Nimodipine (Nimotop) 60 mg Q4H PO Last administered on 02/22/19at 08:31; Start 02/17/19 at 20:00; Stop 02/23/19 at 16:01 Nitrofurantoin Monoh/Nitrofur Macro (Macrobid) 100 mg BID PO Last administered on 02/22/19at 08:32; Start 02/20/19 at 14:00 Nystatin (Mycostatin Powder, Nystop) 1 dose BIDP PRN TOP RASH; Start 02/17/19 at 16:30 Omeprazole (PriLOSEC) 20 mg DAILY PO Last administered on 02/22/19at 08:32; Start 02/18/19 at 09:00 Ondansetron HCl (Zofran) 4 mg Q6HP PRN PO NAUSEA; Start 02/17/19 at 17:00 Oxycodone HCl (Roxicodone, Oxyir) 5 mg Q4HP PRN PO PAIN Last administered on 02/20/19 02:25; Start 02/17/19 at 16:30 Pantoprazole Sodium (Protonix) 40 mg DAILY PO ; Start 02/18/19 at 09:00; Status UNV Patient Own Medication (Patient'S Own Med) Travaprost 0.004% - 1 DROP QHS OU Last administered on 02/21/19 20:41; Start 02/20/19 at 21:00 Potassium Chloride (Micro-K Extencaps) 20 meq DAILY PO Last administered on 02/22/19 08:33; Start 02/18/19 at 09:00 Senna (Senokot) 1 tab QHS PO Last administered on 02/20/19 21:58; Start 02/17/19 at 21:00 Sodium Chloride (Sodium Chloride) 1 gm AC PO Last administered on 02/22/19 08:31; Start 02/21/19 at 12:00 Sodium Chloride (Sodium Chloride) 2 gm AC PO Last administered on 02/21/19 08:22; Start 02/17/19 at 17:30; Stop 02/21/19 at 09:57; Status DC Trazodone HCl (Desyrel) 25 mg QHS PO Last administered on 02/21/19 20:40; Start 02/17/19 at 21:00 MEGHANN SUÁREZ MD Feb 22, 2019 12:03
[2019-02-22 14:00] VITALS: BP 159/79
--- NOTE | 2019-02-22 14:18 | IPNPDOC ---
Date Seen The patient was seen on 02/22/19. Progress Note SUBJECTIVE: Patient is a 78F who is transferred here from [facility] post R. MCA coiling for SAH for continued rehab. Interval history: Patient reports LE swelling on and off but think that its overall better. Denies any SOB or acute events overnight. OBJECTIVE PHYSICAL EXAMINATION: VITAL SIGNS: Please see below. General: No acute distress, Alert Eyes: Normal sclera, EOMI, ARSALAN HENT: Atraumatic, neck supple, moist mucous membranes Cardiovascular: Normal rate, normal rhythm. No murmurs appreciated. LE nonpitting edema around ankles and below. Pulmonary: Clear to auscultation b/l, no wheezing GI: Soft, nontender, nondistended Skin: Warm and dry Neuro: CN grossly intact. No focal deficits. LABORATORY DATA, IMAGING STUDIES, MICROBIOLOGY: Please see below. DVT prophylaxis ordered?: HSQ ASSESSMENT AND PLAN: 1. 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 -c/w Keppra for 21 day course and Nimodipine to prevent vasopasm. -Also on ASA. 2. Hyponatremia resolved. - Likely SIADH - Have been on Florinef. Discontinue. - Also on salt tablets, Na had been stable. consider discontinuing if Na continues to increase. - LE dependent nonpitting edema. 3. GI bleed - recent bleed noted and had been seen by GI, thought to be hemorrhoids. - Hb had been stable. continue to monitor. 4. HTN - c/w home medications. 5. HFpEF - Appear to be hypervolemic with dependent LE edema. - Increase Lasix from 20 to 40 mg PO daily. Advised to keep legs elevated while sitting. - c/w compression wraps. 6. GERD - c/w PPI. 7. DM - continue Accuchecks monitoring. - maintain on ISS. Hold oral glycemic meds. 8. UTI - Urine culture + staph simulans >100,000 CFU. - No dysuria but does have urinary frequency but patient is on Lasix. - c/w macrobid for treatment. VS, I&O, 24H, Fishbone Vital Signs/I&O Vital Signs Date Time Temp Pulse Resp B/P (MAP) Pulse Ox O2 Delivery O2 Flow Rate FiO2 02/22/19 08:32 148/74 02/22/19 06:00 97.7 63 18 95 I&O- Last 24 Hours up to 6 AM 02/22/19 06:00 Intake Total 2280 ml Output Total 2 ml Balance 2278 ml Laboratory Data 24H LABS Laboratory Tests 2 02/21/19 16:41: Bedside Glucose (Misc Panel) 120H 02/21/19 19:46: Bedside Glucose (Misc Panel) 135H 02/22/19 06:32: Bedside Glucose (Misc Panel) 118H 02/22/19 11:23: Bedside Glucose (Misc Panel) 105 Microbiology Microbiology 02/18/19 Urine Culture - Final, Complete Staphylococcus Simulans ROSA MOTA MD Feb 22, 2019 14:18
[2019-02-22 20:00] VITALS: BP 169/77
[2019-02-22] MEDS: ATORVASTATIN 20 MG TAB PO SCH (20:37)
[2019-02-22] MEDS: [UNRECOGNIZED DRUG - OTHER] OU SCH (20:38)
[2019-02-22] MEDS: SENNA 8.6 MG TAB (SENOKOT) PO SCH (20:38)
[2019-02-22] MEDS: traZODone 25MG PER 1/2 TABLET PO SCH (20:38)
[2019-02-23] MEDS: niMODipine 30 MG CAP PO SCH ×5 (00:46→16:19)
[2019-02-23 06:00] VITALS: BP 141/67
[2019-02-23 07:08] LABS: BASO % 0.5 % (0.0-1.0); EOS # 0.1 10^3/uL (0.0-0.50); EOS % 3.1 % (0.0-3.0); HEMATOCRIT 33.8 % (36.0-47.0); HEMOGLOBIN 10.8 g/dl (12.0-15.5); LYMPH # 1.1 10^3/uL (1.5-4.5); LYMPH % 27.6 % (24.0-44.0); MEAN CORPUSCULAR VOLUME 93.9 fl (80.0-96.0); MONO # 0.3 10^3/uL (0.0-0.8); MONO % 8.9 % (0.0-5.0); NEUTROPHILS # 2.3 10^3/uL (1.8-7.7); NEUTROPHILS % 59.6 % (36.0-66.0); PLATELET COUNT, AUTOMATED 199 10^3/uL (150-450); WHITE BLOOD COUNT 3.8 10^3/uL (4.0-10.0)
[2019-02-23 07:27] LABS: BLOOD UREA NITROGEN 13 MG/DL (7-18); CALCIUM LEVEL 10.7 MG/DL (8.8-10.2); CARBON DIOXIDE LEVEL 29 MEQ/L (21-32); CHLORIDE LEVEL 106 MEQ/L (98-107); CREATININE FOR GFR 0.77 MG/DL (0.55-1.30); GLOMERULAR FILTRATION RATE > 60.0 (>32); GLUCOSE, FASTING 109 MG/DL (70-100); POTASSIUM SERUM 3.4 MEQ/L (3.5-5.1); SODIUM LEVEL 142 MEQ/L (136-145)
[2019-02-23] MEDS ORDERED: POTASSIUM CHLORIDE 10 MEQ SR TABLET PO ONE (08:30)
[2019-02-23] MEDS: ASPIRIN 81 MG CHEW TABLET PO SCH (08:48)
[2019-02-23] MEDS: levETIRAcetam 250MG TABLET (KEPPRA) PO SCH (08:49)
[2019-02-23] MEDS: SODIUM CHLORIDE 1 GM TAB PO SCH (08:49)
[2019-02-23] MEDS: POTASSIUM CHLORIDE 10 MEQ SR TABLET PO SCH ×2 (08:49→21:31)
[2019-02-23] MEDS: FUROSEMIDE 40 MG TAB PO SCH (08:50)
[2019-02-23] MEDS: ASCORBIC ACID 500 MG TAB PO SCH ×2 (08:50→21:31)
[2019-02-23] MEDS: NITROFURANTOIN (MACROBID) 100 MG CAP PO SCH ×2 (08:50→21:32)
[2019-02-23] MEDS: DOCUSATE SODIUM 100 MG CAP PO SCH ×3 (08:50→21:00)
[2019-02-23] MEDS: OMEPRAZOLE 20 MG CAP PO SCH (08:50)
[2019-02-23] MEDS: LOSARTAN 50 MG TAB PO SCH (08:51)
--- NOTE | 2019-02-23 10:51 | IPNPDOC ---
PM&R Progress Note DATE OF SERVICE: Feb 23, 2019 [employer] Progress Note Subjective: Patient seen in room stating she feels well and that she worked hard in therapy today. REVIEW OF SYSTEMS: The following is a completed review of systems and has been reviewed. Review of systems otherwise unremarkable. PAIN: Patient self reports no pain, no headache EYES: Negative for photophobia EARS, NOSE, & THROAT: denies dysphagia or throat pain CARDIOVASCULAR: denies chest pain or palpitations PULMONARY: Negative. Denies shortness of breath GASTROINTESTINAL: +soft stools GENITOURINARY: Negative for dysuria. MUSCULOSKELETAL: generalized weakness NEUROLOGICAL: +SAH with no focal deficits SKIN: intact PSYCHIATRIC: Unremarkable All other review of systems found to be negative. PHYSICAL EXAMINATION: VITAL SIGNS: Please see below. GENERAL: Pleasant and cooperative. No acute distress. HEENT: PERRL. Extraocular movements intact. Clear conjunctiva CARDIOVASCULAR: Regular rate and rhythm. No murmurs, rubs, or gallops LUNGS: Mostly clear to auscultation bilaterally with crackles in right lower base. No wheezes. No rhonchi ABDOMEN: Soft, nontender, nondistended. Positive bowel sounds. Normal active bowel sounds NEUROLOGICAL: Alert and oriented times three. Cranial nerves II through XII grossly intact. Sensation grossly intact +Luria, able to name objects EXTREMITIES: 5\5 strength bilateral upper extremities (no pronator drift), 5\5 strength right lower extremity. 5/5 strength in left lower extremity. (+) Ricardo's bilat with swelling SKIN: intact, warm well perfused ASSESSMENT:78-year-old F with past medical history of HTN and diastolic CHF who presents status post SAH s/p right MCA embolization. 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 Castillo, neurosurgical resident as not documented in discharge summary or NATTY notes 3. CArdiac: pmh diastolic CHF c/u ASA and lasix - medicine recs appreciated -hyponatremia likely due to SIADH in setting of SAH, s/p seda will stop NaCl tabs today as Na wnl and monitor -hypokalemia, s/p 40meq x1 and will increase daily dosing to 20meq BID- medicine recs appreciated -pmh HLD c/u statin therapy -pmh HTn increased losartan to 125mg for elevated BPs-better 4. Resp: stable encourage incentive spirometry 5. Endo: pmh DM c/u to hold metformin-stable off metformin, undergoing trial off sliding scale coverage and monitor BID FS with plan to d/c off all diabetic meds if possible 6. GI ppx: omeprazole, pmh hemorrhoids will adjust bowel care to avoid constipation and straining-stable 7. DVT ppx: heparin and TEDs- Dopplers negative 8. : admission Ua and Ucx positive for Staph Simulans, low grade fevers with urinary frequency, c/u Macrobid x7 days , monitor PVRs 9. Extremities: bilateral leg swelling- c/u Acewrap and elevate, c/u Lasix 9. Dispo: 02/28/19 to home, progressing towards goals Allergies Coded Allergies: lisinopril (Verified Allergy, Severe, angio edema, 02/01/19) Penicillins (Verified Allergy, Intermediate, HIVES, 02/01/19) lactose (Verified Adverse Reaction, Mild, GI upset, 02/01/19) Vital Signs Vital Signs Date Time Temp Pulse Resp B/P (MAP) Pulse Ox O2 Delivery O2 Flow Rate FiO2 02/23/19 08:51 174/62 02/23/19 06:00 97.9 64 18 95 Laboratory Data CBC/BMP Laboratory Tests 02/23/19 06:31 Red Blood Count 3.60 L, Mean Corpuscular Volume 93.9, Mean Corpuscular Hemoglobin 30.0, Mean Corpuscular Hemoglobin Concent 32.0, Red Cell Distribution Width 14.7 H, Neutrophils (%) (Auto) 59.6, Lymphocytes (%) (Auto) 27.6, Monocytes (%) (Auto) 8.9 H, Eosinophils (%) (Auto) 3.1 H, Basophils (%) (Auto) 0.5, Neutrophils # (Auto) 2.3, Lymphocytes # (Auto) 1.1 L, Monocytes # (Auto) 0.3, Eosinophils # (Auto) 0.1, Basophils # (Auto) 0.0, Calcium Level 10.7 H Labs 24H Laboratory Tests 2 02/22/19 11:23: Bedside Glucose (Misc Panel) 105 02/22/19 17:06: Bedside Glucose (Misc Panel) 113H 02/23/19 06:31: Immature Granulocyte % (Auto) 0.3, White Blood Count 3.8L, Red Blood Count 3.60L, Hemoglobin 10.8L, Hematocrit 33.8L, Mean Corpuscular Volume 93.9, Mean Corpuscular Hemoglobin 30.0, Mean Corpuscular Hemoglobin Concent 32.0, Red Cell Distribution Width 14.7H, Platelet Count 199, Neutrophils (%) (Auto) 59.6, Lymphocytes (%) (Auto) 27.6, Monocytes (%) (Auto) 8.9H, Eosinophils (%) (Auto) 3.1H, Basophils (%) (Auto) 0.5, Neutrophils # (Auto) 2.3, Lymphocytes # (Auto) 1.1L, Monocytes # (Auto) 0.3, Eosinophils # (Auto) 0.1, Basophils # (Auto) 0.0, Nucleated Red Blood Cells % (auto) 0.0, Anion Gap 7L, Glomerular Filtration Rate > 60.0, Blood Urea Nitrogen 13, Creatinine 0.77, Sodium Level 142, Potassium Level 3.4L, Chloride Level 106, Carbon Dioxide Level 29, Calcium Level 10.7H Microbiology Microbiology 02/18/19 Urine Culture - Final, Complete Staphylococcus Simulans Current Medications Current Medications Current Medications Acetaminophen (Tylenol Tab) 650 mg Q4HP PRN PO fever/MILD PAIN (PS 1-4) Last administered on 02/18/19at 21:36; Start 02/17/19 at 17:00 Al Hydrox/Mg Hydrox/Simethicone (Mylanta) 30 ml Q4HP PRN PO DYSPEPSIA; Start 02/17/19 at 17:00 Ascorbic Acid (Vitamin C) 500 mg BID PO Last administered on 02/23/19at 08:50; Start 02/17/19 at 21:00 Aspirin (Aspirin Chewable) 81 mg DAILY PO Last administered on 02/23/19at 08:48; Start 02/18/19 at 09:00 Atorvastatin Calcium (Lipitor) 40 mg QHS PO Last administered on 02/22/19at 20:37; Start 02/17/19 at 21:00 Bisacodyl (Dulcolax Suppository) 10 mg DAILYPRN PRN [place] CONSTIPATION; Start 02/17/19 at 17:00 Dextrose (Dextrose 50%) 25 ml ASDIRECTED PRN IV SEE LABEL COMMENTS; Start 02/17/19 at 17:00 Docusate Sodium (Colace) 100 mg BID PO ; Start 02/17/19 at 21:00; Stop 02/17/19 at 21:00; Status DC Docusate Sodium (Colace) 100 mg TID PO Last administered on 02/22/19at 17:05; Start 02/17/19 at 16:00 Fludrocortisone Acetate (Florinef) 0.1 mg DAILY PO Last administered on 02/20/19at 08:40; Start 02/18/19 at 09:00; Stop 02/20/19 at 13:33; Status DC Furosemide (Lasix) 10 mg DAILY PO Last administered on 02/19/19at 08:25; Start 02/18/19 at 09:00; Stop 02/19/19 at 09:48; Status DC Furosemide (Lasix) 20 mg DAILY PO Last administered on 02/21/19at 08:22; Start 02/20/19 at 09:00; Stop 02/21/19 at 13:43; Status DC Furosemide (Lasix) 40 mg DAILY PO Last administered on 02/23/19at 08:50; Start 02/21/19 at 13:45 Glucagon (Glucagon) 1 mg ASDIRECTED PRN SC SEE LABEL COMMENTS; Start 02/17/19 at 17:00 Glucose (Glucose) 16 GM ASDIRECTED PRN PO SEE LABEL COMMENTS; Start 02/17/19 at 17:00 Heparin Sodium (Porcine) (Heparin) 5,000 units Q12H SC ; Start 02/17/19 at 17:00; Status UNV Heparin Sodium (Porcine) (Heparin) 5,000 units Q12H SQ Last administered on 02/22/19at 20:37; Start 02/17/19 at 21:00 Home Med (Med Rec Complete!) ASDIRECTED XX ; Start 02/17/19 at 16:15; Stop 02/17/19 at 16:16; Status DC Insulin Human Lispro (HumaLOG INSULIN) SEE PROTOCOL TABLE QHS SC ; Start 9 at 21:00 Insulin Human Lispro (HumaLOG INSULIN) See Protocol Table AC SC Last administered on 02/22/19at 07:30; Start 02/18/19 at 07:30; Stop 02/22/19 at 11:53; Status DC Levetiracetam (Keppra) 500 mg BID PO Last administered on 02/23/19at 08:49; Start 02/17/19 at 21:00; Stop 02/23/19 at 09:01; Status DC Losartan Potassium (Cozaar) 100 mg DAILY PO Last administered on 02/21/19at 08:21; Start 02/18/19 at 09:00; Stop 02/21/19 at 09:57; Status DC Losartan Potassium (Cozaar) 125 mg DAILY PO Last administered on 02/23/19at 08:51; Start 02/22/19 at 09:00 Miscellaneous (Unresolved Patient Own Med Order) SEE LABEL COMMENTS DAILY XX ; Start 02/17/19 at 09:00; Stop 02/20/19 at 14:47; Status DC Nimodipine (Nimotop) 60 mg Q4H PO Last administered on 02/23/19at 08:51; Start 02/17/19 at 20:00; Stop 02/23/19 at 16:01 Nitrofurantoin Monoh/Nitrofur Macro (Macrobid) 100 mg BID PO Last administered on 02/23/19at 08:50; Start 02/20/19 at 14:00 Nystatin (Mycostatin Powder, Nystop) 1 dose BIDP PRN TOP RASH; Start 02/17/19 at 16:30 Omeprazole (PriLOSEC) 20 mg DAILY PO Last administered on 02/23/19at 08:50; Start 02/18/19 at 09:00 Ondansetron HCl (Zofran) 4 mg Q6HP PRN PO NAUSEA; Start 02/17/19 at 17:00 Oxycodone HCl (Roxicodone, Oxyir) 5 mg Q4HP PRN PO PAIN Last administered on 02/20/19at 02:25; Start 02/17/19 at 16:30 Pantoprazole Sodium (Protonix) 40 mg DAILY PO ; Start 02/18/19 at 09:00; Status UNV Patient Own Medication (Patient'S Own Med) Travaprost 0.004% - 1 DROP QHS OU Last administered on 02/22/19 20:38; Start 02/20/19 at 21:00 Potassium Chloride (Micro-K Extencaps) 20 meq DAILY PO Last administered on 02/23/19 08:49; Start 02/18/19 at 09:00 Senna (Senokot) 1 tab QHS PO Last administered on 02/20/19at 21:58; Start 02/17/19 at 21:00 Sodium Chloride (Sodium Chloride) 1 gm AC PO Last administered on 02/23/19 08:49; Start 02/21/19 at 12:00 Sodium Chloride (Sodium Chloride) 2 gm AC PO Last administered on 02/21/19 08:22; Start 02/17/19 at 17:30; Stop 02/21/19 at 09:57; Status DC Trazodone HCl (Desyrel) 25 mg QHS PO Last administered on 02/22/19 20:38; Start 02/17/19 at 21:00 MEGHANN SUÁREZ MD Feb 23, 2019 10:51
[2019-02-23] MEDS: HEPARIN SOD (PORCINE) 5000 UNITS/ML VIAL SQ SCH ×2 (11:16→21:32)
--- NOTE | 2019-02-23 13:37 | IPNPDOC ---
Date Seen The patient was seen on 02/23/19. Progress Note SUBJECTIVE: Patient is a 78F who is transferred here from [facility] post R. MCA coiling for SAH for continued rehab. Interval history: Patient is comfortable. Again noted no particular issues bothering her. Patient think that her LE swelling is improved with wrapping and medication. OBJECTIVE PHYSICAL EXAMINATION: VITAL SIGNS: Please see below. General: No acute distress, Alert Eyes: Normal sclera, EOMI, ARSALAN HENT: Atraumatic, neck supple, moist mucous membranes Cardiovascular: Normal rate, normal rhythm. No murmurs appreciated. LE nonpitting edema improving with overlying wrap. Pulmonary: Clear to auscultation b/l, no wheezing GI: Soft, nontender, nondistended Skin: Warm and dry Neuro: CN grossly intact. No focal deficits. LABORATORY DATA, IMAGING STUDIES, MICROBIOLOGY: Please see below. DVT prophylaxis ordered?: HSQ ASSESSMENT AND PLAN: 1. 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 -c/w Keppra for 21 day course and Nimodipine to prevent vasopasm. -Also on ASA. 2. Hyponatremia resolved. - Likely SIADH - Have been on Florinef. Discontinue. - Also on salt tablets, Na had been stable. consider discontinuing if Na continues to increase. - LE dependent nonpitting edema. 3. GI bleed - recent bleed noted and had been seen by GI, thought to be hemorrhoids. - Hb had been stable. continue to monitor. 4. HTN - On Cozaar 125 mg daily currently. BP not controlled. - Added Norvasc 5 mg daily. 5. HFpEF - Appear to be hypervolemic with dependent LE edema. - Lasix 40 mg PO daily. - c/w compression wraps. 6. GERD - c/w PPI. 7. DM - continue Accuchecks monitoring. - maintain on ISS. Hold oral glycemic meds. 8. UTI - Urine culture + staph simulans >100,000 CFU. - No dysuria but does have urinary frequency but patient is on Lasix. - c/w macrobid for treatment. VS, I&O, 24H, Fishbone Vital Signs/I&O Vital Signs Date Time Temp Pulse Resp B/P (MAP) Pulse Ox O2 Delivery O2 Flow Rate FiO2 02/23/19 08:51 174/62 4/18/19 06:00 97.9 64 18 95 I&O- Last 24 Hours up to 6 AM 02/23/19 06:00 Intake Total 1860 ml Balance 1860 ml Laboratory Data 24H LABS Laboratory Tests 2 02/22/19 17:06: Bedside Glucose (Misc Panel) 113H 02/23/19 06:31: Immature Granulocyte % (Auto) 0.3, White Blood Count 3.8L, Red Blood Count 3.60L, Hemoglobin 10.8L, Hematocrit 33.8L, Mean Corpuscular Volume 93.9, Mean Corpuscular Hemoglobin 30.0, Mean Corpuscular Hemoglobin Concent 32.0, Red Cell Distribution Width 14.7H, Platelet Count 199, Neutrophils (%) (Auto) 59.6, Lymphocytes (%) (Auto) 27.6, Monocytes (%) (Auto) 8.9H, Eosinophils (%) (Auto) 3.1H, Basophils (%) (Auto) 0.5, Neutrophils # (Auto) 2.3, Lymphocytes # (Auto) 1.1L, Monocytes # (Auto) 0.3, Eosinophils # (Auto) 0.1, Basophils # (Auto) 0.0, Nucleated Red Blood Cells % (auto) 0.0, Anion Gap 7L, Glomerular Filtration Rate > 60.0, Blood Urea Nitrogen 13, Creatinine 0.77, Sodium Level 142, Potassium Level 3.4L, Chloride Level 106, Carbon Dioxide Level 29, Calcium Level 10.7H CBC/BMP Laboratory Tests 02/23/19 06:31 Red Blood Count 3.60 L, Mean Corpuscular Volume 93.9, Mean Corpuscular Hemoglobin 30.0, Mean Corpuscular Hemoglobin Concent 32.0, Red Cell Distribution Width 14.7 H, Neutrophils (%) (Auto) 59.6, Lymphocytes (%) (Auto) 27.6, Mo nocytes (%) (Auto) 8.9 H, Eosinophils (%) (Auto) 3.1 H, Basophils (%) (Auto) 0.5, Neutrophils # (Auto) 2.3, Lymphocytes # (Auto) 1.1 L, Monocytes # (Auto) 0.3, Eosinophils # (Auto) 0.1, Basophils # (Auto) 0.0, Calcium Level 10.7 H Microbiology Microbiology 02/18/19 Urine Culture - Final, Complete Staphylococcus Simulans ROSA MOTA MD Feb 23, 2019 13:37
[2019-02-23] MEDS ORDERED: amLODIPine 5 MG TAB PO SCH (13:45)
[2019-02-23 14:00] VITALS: BP 162/76
[2019-02-23] MEDS: METOPROLOL SUCC *XL* 25MG TAB (TopROL *XL*) PO SCH (14:21)
[2019-02-23 20:00] VITALS: BP 161/70
[2019-02-23] MEDS: SENNA 8.6 MG TAB (SENOKOT) PO SCH (21:00)
[2019-02-23] MEDS: ATORVASTATIN 20 MG TAB PO SCH (21:31)
[2019-02-23] MEDS: ACETAMINOPHEN TAB 650MG DOSE (2X325MG) PO PRN (21:32)
[2019-02-23] MEDS: [UNRECOGNIZED DRUG - OTHER] OU SCH (21:32)
[2019-02-23] MEDS: traZODone 25MG PER 1/2 TABLET PO SCH (21:32)
[2019-02-24 06:00] VITALS: BP 162/84
[2019-02-24 07:14] LABS: BLOOD UREA NITROGEN 14 MG/DL (7-18); CALCIUM LEVEL 11.3 MG/DL (8.8-10.2); CARBON DIOXIDE LEVEL 28 MEQ/L (21-32); CHLORIDE LEVEL 107 MEQ/L (98-107); CREATININE FOR GFR 0.81 MG/DL (0.55-1.30); GLOMERULAR FILTRATION RATE > 60.0 (>32); GLUCOSE, FASTING 107 MG/DL (70-100); POTASSIUM SERUM 3.9 MEQ/L (3.5-5.1); SODIUM LEVEL 142 MEQ/L (136-145)
[2019-02-24] MEDS: ASCORBIC ACID 500 MG TAB PO SCH ×2 (08:30→21:02)
[2019-02-24] MEDS: OMEPRAZOLE 20 MG CAP PO SCH (08:30)
[2019-02-24] MEDS: POTASSIUM CHLORIDE 10 MEQ SR TABLET PO SCH ×2 (08:30→21:02)
[2019-02-24] MEDS: NITROFURANTOIN (MACROBID) 100 MG CAP PO SCH ×2 (08:30→21:02)
[2019-02-24] MEDS: FUROSEMIDE 40 MG TAB PO SCH (08:30)
[2019-02-24] MEDS: LOSARTAN 50 MG TAB PO SCH (08:30)
[2019-02-24] MEDS: DOCUSATE SODIUM 100 MG CAP PO SCH ×3 (08:30→21:01)
[2019-02-24] MEDS: ASPIRIN 81 MG CHEW TABLET PO SCH (08:30)
[2019-02-24] MEDS: HEPARIN SOD (PORCINE) 5000 UNITS/ML VIAL SQ SCH ×2 (08:31→21:01)
[2019-02-24] MEDS: ACETAMINOPHEN TAB 650MG DOSE (2X325MG) PO PRN (08:31)
[2019-02-24] MEDS: METOPROLOL SUCC *XL* 25MG TAB (TopROL *XL*) PO SCH (08:31)
[2019-02-24] MEDS: METOPROLOL TART 25 MG TABLET PO SCH ×3 (09:00→21:03)
--- NOTE | 2019-02-24 10:18 | IPNPDOC ---
PM&R Progress Note DATE OF SERVICE: Feb 24, 2019 Manufacturers Agent Progress Note Subjective: Patient reports feeling fatigued stating se is not sleeping well. She was encouraged to keep shades up during the day to reset her circadian rhythm. REVIEW OF SYSTEMS: The following is a completed review of systems and has been reviewed. Review of systems otherwise unremarkable. PAIN: Patient self reports no pain, no headache EYES: Negative for photophobia EARS, NOSE, & THROAT: denies dysphagia or throat pain CARDIOVASCULAR: denies chest pain or palpitations PULMONARY: Negative. Denies shortness of breath GASTROINTESTINAL: +soft stools GENITOURINARY: Negative for dysuria. MUSCULOSKELETAL: generalized weakness NEUROLOGICAL: +SAH with no focal deficits SKIN: intact PSYCHIATRIC: Unremarkable All other review of systems found to be negative. PHYSICAL EXAMINATION: VITAL SIGNS: Please see below. GENERAL: Pleasant and cooperative. No acute distress. HEENT: PERRL. Extraocular movements intact. Clear conjunctiva CARDIOVASCULAR: Regular rate and rhythm. No murmurs, rubs, or gallops LUNGS: Mostly clear to auscultation bilaterally with crackles in right lower base. No wheezes. No rhonchi ABDOMEN: Soft, nontender, nondistended. Positive bowel sounds. Normal active bowel sounds NEUROLOGICAL: Alert and oriented times three. Cranial nerves II through XII grossly intact. Sensation grossly intact +Luria, able to name objects EXTREMITIES: 5\5 strength bilateral upper extremities (no pronator drift), 5\5 strength right lower extremity. 5/5 strength in left lower extremity. (+) Ricardo's bilat with swelling SKIN: intact, warm well perfused ASSESSMENT:78-year-old F with past medical history of HTN and diastolic CHF who presents status post SAH s/p right MCA embolization. PLAN: 1. rehab: PT/OT and [employer]- assess for DME needs, ambulating further with RW and Mod-I in OT, c/u room privileges today and plan for apartment stay starting 02/25/19 2. 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 Oh, neurosurgical resident as not documented in discharge summary or NATTY notes 3. CArdiac: pmh diastolic CHF c/u ASA and lasix - medicine recs appreciated -hyponatremia likely due to SIADH in setting of SAH, s/p florinef and s/p NaCl tabs- c/u to monitor -hypokalemia, better-c/u 40meq daily, medicine recs appreciated -pmh HLD c/u statin therapy -pmh HTn increased losartan to 125mg for elevated BPs-started aslo on metoprolol 25mg daily er medicine recs 4. Resp: stable encourage incentive spirometry 5. Endo: pmh DM c/u to hold metformin-stable off metformin, undergoing trial off sliding scale coverage and monitor BID FS with plan to d/c off all diabetic meds if possible-stable 6. GI ppx: omeprazole, pmh hemorrhoids will adjust bowel care to avoid constipation and straining-stable 7. DVT ppx: heparin and TEDs- Dopplers negative 8. : admission Ua and Ucx positive for Staph Simulans, low grade fevers with urinary frequency, c/u Macrobid x7 days , monitor PVRs 9. Extremities: bilateral leg swelling- c/u Acewrap and elevate, c/u Lasix 10. Insomnia: increase trazodone to 50mg 11. Dispo: 02/28/19 to home, progressing towards goals Allergies Coded Allergies: lisinopril (Verified Allergy, Severe, angio edema, 02/01/19) Penicillins (Verified Allergy, Intermediate, HIVES, 02/01/19) lactose (Verified Adverse Reaction, Mild, GI upset, 02/01/19) Vital Signs Vital Signs Date Time Temp Pulse Resp B/P (MAP) Pulse Ox O2 Delivery O2 Flow Rate FiO2 02/24/19 08:31 72 172/72 02/24/19 06:00 97.6 18 96 Laboratory Data CBC/BMP Laboratory Tests 02/24/19 06:17 Calcium Level 11.3 H Labs 24H Laboratory Tests 2 02/23/19 17:08: Bedside Glucose (Misc Panel) 139H 02/24/19 06:17: Anion Gap 7L, Glomerular Filtration Rate > 60.0, Blood Urea Nitrogen 14, Creatinine 0.81, Sodium Level 142, Potassium Level 3.9, Chloride Level 107, Carbon Dioxide Level 28, Calcium Level 11.3H Microbiology Microbiology 4/13/19 Urine Culture - Final, Complete Staphylococcus Simulans Current Medications Current Medications Current Medications Acetaminophen (Tylenol Tab) 650 mg Q4HP PRN PO fever/MILD PAIN (PS 1-4) Last administered on 02/24/19 08:31; Start 02/17/19 at 17:00 Al Hydrox/Mg Hydrox/Simethicone (Mylanta) 30 ml Q4HP PRN PO DYSPEPSIA; Start 02/17/19 at 17:00 Amlodipine Besylate (Norvasc) 5 mg DAILY PO ; Start 02/23/19 at 13:45; Stop at 13:45; Status DC Ascorbic Acid (Vitamin C) 500 mg BID PO Last administered on 02/24/19 08:30; Start 02/17/19 at 21:00 Aspirin (Aspirin Chewable) 81 mg DAILY PO Last administered on 02/24/19 08:30; Start 02/18/19 at 09:00 Atorvastatin Calcium (Lipitor) 40 mg QHS PO Last administered on 02/23/19at 21:31; Start 02/17/19 at 21:00 Bisacodyl (Dulcolax Suppository) 10 mg DAILYPRN PRN MS CONSTIPATION; Start 02/17/19 at 17:00 Dextrose (Dextrose 50%) 25 ml ASDIRECTED PRN IV SEE LABEL COMMENTS; Start 02/17/19 at 17:00 Docusate Sodium (Colace) 100 mg BID PO ; Start 02/17/19 at 21:00; Stop 02/17/19 at 21:00; Status DC Docusate Sodium (Colace) 100 mg TID PO Last administered on 02/24/19 08:30; Start 02/17/19 at 16:00 Fludrocortisone Acetate (Florinef) 0.1 mg DAILY PO Last administered on 02/20/19 08:40; Start 02/18/19 at 09:00; Stop 02/20/19 at 13:33; Status DC Furosemide (Lasix) 10 mg DAILY PO Last administered on 02/19/19 08:25; Start 02/18/19 at 09:00; Stop 02/19/19 at 09:48; Status DC Furosemide (Lasix) 20 mg DAILY PO Last administered on 4/16/19at 08:22; Start 02/20/19 at 09:00; Stop 02/21/19 at 13:43; Status DC Furosemide (Lasix) 40 mg DAILY PO Last administered on 02/24/19at 08:30; Start 02/21/19 at 13:45 Glucagon (Glucagon) 1 mg ASDIRECTED PRN SC SEE LABEL COMMENTS; Start 02/17/19 at 17:00 Glucose (Glucose) 16 GM ASDIRECTED PRN PO SEE LABEL COMMENTS; Start 02/17/19 at 17:00 Heparin Sodium (Porcine) (Heparin) 5,000 units Q12H SC ; Start 02/17/19 at 17:00 ; Status UNV Heparin Sodium (Porcine) (Heparin) 5,000 units Q12H SQ Last administered on 02/24/19at 08:31; Start 02/17/19 at 21:00 Home Med (Med Rec Complete!) ASDIRECTED XX ; Start 02/17/19 at 16:15; Stop 02/17/19 at 16:16; Status DC Insulin Human Lispro (HumaLOG INSULIN) SEE PROTOCOL TABLE QHS SC ; Start 02/17/19 at 21:00; Stop 02/23/19 at 14:19; Status DC Insulin Human Lispro (HumaLOG INSULIN) See Protocol Table AC SC Last administered on 02/22/19at 07:30; Start 02/18/19 at 07:30; Stop 02/22/19 at 11:53; Status DC Levetiracetam (Keppra) 500 mg BID PO Last administered on 02/23/19at 08:49; Start 02/17/19 at 21:00; Stop 02/23/19 at 09:01; Status DC Losartan Potassium (Cozaar) 100 mg DAILY PO Last administered on 02/21/19at 08:21; Start 02/18/19 at 09:00; Stop 02/21/19 at 09:57; Status DC Losartan Potassium (Cozaar) 125 mg DAILY PO Last administered on 02/24/19at 08:30; Start 02/22/19 at 09:00 Metoprolol Succinate (TopROL XL) 25 mg DAILY PO Last administered on 02/24/19at 08:31; Start 02/23/19 at 13:45 Miscellaneous (Unresolved Patient Own Med Order) SEE LABEL COMMENTS DAILY XX ; Start 02/17/19 at 09:00; Stop 02/20/19 at 14:47; Status DC Nimodipine (Nimotop) 60 mg Q4H PO Last administered on 02/23/19 16:19; Start 02/17/19 at 20:00; Stop 02/23/19 at 16:01; Status DC Nitrofurantoin Monoh/Nitrofur Macro (Macrobid) 100 mg BID PO Last administered on 02/24/19 08:30; Start 02/20/19 at 14:00 Nystatin (Mycostatin Powder, Nystop) 1 dose BIDP PRN TOP RASH; Start 02/17/19 at 16:30 Omeprazole (PriLOSEC) 20 mg DAILY PO Last administered on 02/24/19 08:30; Start 02/18/19 at 09:00 Ondansetron HCl (Zofran) 4 mg Q6HP PRN PO NAUSEA; Start 02/17/19 at 17:00 Oxycodone HCl (Roxicodone, Oxyir) 5 mg Q4HP PRN PO PAIN Last administered on 02/20/19 02:25; Start 02/17/19 at 16:30; Stop 02/23/19 at 10:50; Status DC Pantoprazole Sodium (Protonix) 40 mg DAILY PO ; Start 02/18/19 at 09:00; Status UNV Patient Own Medication (Patient'S Own Med) Travaprost 0.004% - 1 DROP QHS OU Last administered on 02/23/19at 21:32; Start 02/20/19 at 21:00 Potassium Chloride (Micro-K Extencaps) 20 meq BID PO Last administered on 02/24/19 08:30; Start 02/23/19 at 21:00 Potassium Chloride (Micro-K Extencaps) 20 meq DAILY PO Last administered on 02/23/19 08:49; Start 02/18/19 at 09:00; Stop 02/23/19 at 10:50; Status DC Senna (Senokot) 1 tab QHS PO Last administered on 02/20/19at 21:58; Start 02/17/19 at 21:00 Sodium Chloride (Sodium Chloride) 1 gm AC PO Last administered on 02/23/19 08:49; Start 02/21/19 at 12:00; Stop 02/23/19 at 10:50; Status DC Sodium Chloride (Sodium Chloride) 2 gm AC PO Last administered on 02/21/19at 08:22; Start 02/17/19 at 17:30; Stop 02/21/19 at 09:57; Status DC Trazodone HCl (Desyrel) 25 mg QHS PO Last administered on 02/23/19at 21:32; Start 02/17/19 at 21:00 MEGHANN SUÁREZ MD Feb 24, 2019 10:18
[2019-02-24 14:00] VITALS: BP 152/74
--- NOTE | 2019-02-24 15:01 | IPNPDOC ---
Date Seen The patient was seen on 02/24/19. Progress Note SUBJECTIVE: Patient is a 78F who is transferred here from [facility] post R. MCA coiling for SAH for continued rehab. Interval history: Patient states that she didnt sleep well last night for no particular reason, otherwise she has no other issues and feels well. OBJECTIVE PHYSICAL EXAMINATION: VITAL SIGNS: Please see below. General: No acute distress, Alert Eyes: Normal sclera, EOMI, ARSALAN HENT: Atraumatic, neck supple, moist mucous membranes Cardiovascular: Normal rate, normal rhythm. No murmurs appreciated. LE nonpitting edema improving. Pulmonary: Clear to auscultation b/l, no wheezing GI: Soft, nontender, nondistended Skin: Warm and dry Neuro: CN grossly intact. No focal deficits. LABORATORY DATA, IMAGING STUDIES, MICROBIOLOGY: Please see below. DVT prophylaxis ordered?: HSQ ASSESSMENT AND PLAN: 1. 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 -c/w Keppra for 21 day course and Nimodipine to prevent vasopasm. -Also on ASA. 2. Hyponatremia resolved. - Likely SIADH - Florinef discontinued. - Also on salt tablets, Na had been stable. consider discontinuing if Na continues to increase. - LE dependent nonpitting edema. 3. GI bleed - recent bleed noted and had been seen by GI, thought to be hemorrhoids. - Hb had been stable. continue to monitor. 4. HTN - On Cozaar 125 mg daily currently. BP not controlled. - Added Norvasc 5 mg daily. Will monitor for improvement, may take several days to see a noticable effect. - Titrate up if needed. 5. HFpEF - Appear to be hypervolemic with dependent LE edema. - Lasix 40 mg PO daily. - c/w compression wraps. 6. GERD - c/w PPI. 7. DM - continue Accuchecks monitoring. - maintain on ISS. Hold oral glycemic meds. 8. UTI - Urine culture + staph simulans >100,000 CFU. - No dysuria but does have urinary frequency but patient is on Lasix. - c/w macrobid for treatment. Likely will only need a 5 day course and can d/c after 02/25. VS, I&O, 24H, Fishbone Vital Signs/I&O Vital Signs Date Time Temp Pulse Resp B/P (MAP) Pulse Ox O2 Delivery O2 Flow Rate FiO2 02/24/19 14:00 97.7 64 18 152/74 (100) 97 I&O- Last 24 Hours up to 6 AM 02/24/19 06:00 Intake Total 1340 ml Balance 1340 ml Laboratory Data 24H LABS Laboratory Tests 2 02/23/19 17:08: Bedside Glucose (Misc Panel) 139H 02/24/19 06:17: Anion Gap 7L, Glomerular Filtration Rate > 60.0, Blood Urea Nitrogen 14, Creati nine 0.81, Sodium Level 142, Potassium Level 3.9, Chloride Level 107, Carbon Dioxide Level 28, Calcium Level 11.3H CBC/BMP Laboratory Tests 02/24/19 06:17 Calcium Level 11.3 H Microbiology Microbiology 02/18/19 Urine Culture - Final, Complete Staphylococcus Simulans ROSA MOTA MD Feb 24, 2019 15:01
[2019-02-24] MEDS: [UNRECOGNIZED DRUG - OTHER] OU SCH (21:01)
[2019-02-24] MEDS: SENNA 8.6 MG TAB (SENOKOT) PO SCH (21:01)
[2019-02-24] MEDS: ATORVASTATIN 20 MG TAB PO SCH (21:02)
[2019-02-24] MEDS: traZODone 50 MG TAB PO SCH (21:02)
[2019-02-24 21:38] VITALS: BP 160/74
[2019-02-25] MEDS: ACETAMINOPHEN TAB 650MG DOSE (2X325MG) PO PRN ×2 (02:03→17:10)
[2019-02-25 05:39] VITALS: BP 159/75
--- NOTE | 2019-02-25 10:16 | IPNPDOC ---
Date Seen The patient was seen on 02/25/19. Progress Note SUBJECTIVE: Patient is a 78F who is transferred here from [facility] post R. MCA coiling for SAH for continued rehab. Interval history: Patient reports still having some issues with sleep but had a better night last night and previous. Reports no other physical complaints. OBJECTIVE PHYSICAL EXAMINATION: VITAL SIGNS: Please see below. General: No acute distress, Alert Eyes: Normal sclera, EOMI, ARSALAN HENT: Atraumatic, neck supple, moist mucous membranes Cardiovascular: Normal rate, normal rhythm. No murmurs appreciated. LE nonpitting edema improving. Pulmonary: Clear to auscultation b/l, no wheezing GI: Soft, nontender, nondistended Skin: Warm and dry Neuro: CN grossly intact. No focal deficits. LABORATORY DATA, IMAGING STUDIES, MICROBIOLOGY: Please see below. DVT prophylaxis ordered?: HSQ ASSESSMENT AND PLAN: 1. 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 -c/w Keppra for 21 day course and Nimodipine to prevent vasopasm. -Also on ASA. 2. Hyponatremia resolved. - Likely SIADH - Florinef discontinued. - Also on salt tablets, Na had been stable. consider discontinuing if Na continues to increase. - LE dependent nonpitting edema. 3. GI bleed - recent bleed noted and had been seen by GI, thought to be hemorrhoids. - Hb had been stable. continue to monitor. 4. HTN - On Cozaar 125 mg daily currently. BP not controlled. - Added Norvasc 5 mg daily. Will monitor for improvement, may take several days to see a noticable effect. - Titrate up if needed. 5. HFpEF - Appear to be hypervolemic with dependent LE edema. - Lasix 40 mg PO daily. - c/w compression wraps. 6. GERD - c/w PPI. 7. DM - continue Accuchecks monitoring. - maintain on ISS. Hold oral glycemic meds. 8. UTI - Urine culture + staph simulans >100,000 CFU. - No dysuria but does have urinary frequency but patient is on Lasix. - c/w macrobid for treatment. Likely will only need a 5 day course and can d/c after 02/25. VS, I&O, 24H, Fishbone Vital Signs/I&O Vital Signs Date Time Temp Pulse Resp B/P (MAP) Pulse Ox O2 Delivery O2 Flow Rate FiO2 02/25/19 05:39 96.8 57 18 159/75 (103) 94 I&O- Last 24 Hours up to 6 AM 02/25/19 06:00 Intake Total 760 ml Balance 760 ml Laboratory Data 24H LABS Laboratory Tests 2 02/24/19 16:19: Bedside Glucose (Misc Panel) 117H 02/25/19 05:36: Bedside Glucose (Misc Panel) 96 Microbiology Microbiology 02/18/19 Urine Culture - Final, Complete Staphylococcus Simulans ROSA MOTA MD Feb 25, 2019 10:16
[2019-02-25] MEDS: ASPIRIN 81 MG CHEW TABLET PO SCH (11:04)
[2019-02-25] MEDS: DOCUSATE SODIUM 100 MG CAP PO SCH ×3 (11:04→21:53)
[2019-02-25] MEDS: OMEPRAZOLE 20 MG CAP PO SCH (11:04)
[2019-02-25] MEDS: FUROSEMIDE 40 MG TAB PO SCH (11:04)
[2019-02-25] MEDS: NITROFURANTOIN (MACROBID) 100 MG CAP PO SCH ×2 (11:04→21:53)
[2019-02-25] MEDS: ASCORBIC ACID 500 MG TAB PO SCH ×2 (11:04→21:53)
[2019-02-25] MEDS: POTASSIUM CHLORIDE 10 MEQ SR TABLET PO SCH ×2 (11:05→21:52)
[2019-02-25] MEDS: HEPARIN SOD (PORCINE) 5000 UNITS/ML VIAL SQ SCH ×2 (11:05→21:51)
[2019-02-25] MEDS: METOPROLOL TART 25 MG TABLET PO SCH ×3 (11:06→21:53)
[2019-02-25] MEDS: LOSARTAN 50 MG TAB PO SCH (11:06)
[2019-02-25 14:00] VITALS: BP 190/85
[2019-02-25 14:30] VITALS: BP 190/85
[2019-02-25 16:00] VITALS: BP 168/70
[2019-02-25 20:00] VITALS: BP 151/70
[2019-02-25] MEDS: ATORVASTATIN 20 MG TAB PO SCH (21:52)
[2019-02-25] MEDS: SENNA 8.6 MG TAB (SENOKOT) PO SCH (21:53)
[2019-02-25] MEDS: traZODone 50 MG TAB PO SCH (21:54)
[2019-02-25] MEDS: [UNRECOGNIZED DRUG - OTHER] OU SCH (21:54)
[2019-02-26 05:15] VITALS: BP 172/79
[2019-02-26 06:33] LABS: HEMATOCRIT 35.9 % (36.0-47.0); HEMOGLOBIN 11.3 g/dl (12.0-15.5); MEAN CORPUSCULAR HEMOGLOBIN 29.8 pg (27.0-33.0); MEAN CORPUSCULAR HGB CONC 31.5 g/dl (32.0-36.5); MEAN CORPUSCULAR VOLUME 94.7 fl (80.0-96.0); PLATELET COUNT, AUTOMATED 181 10^3/uL (150-450); RED BLOOD COUNT 3.79 10^6/uL (4.00-5.40)
--- NOTE | 2019-02-26 07:34 | IPNPDOC ---
Date Seen The patient was seen on 02/26/19. Progress Note SUBJECTIVE: Patient is a 78F who is transferred here from [facility] post R. MCA coiling for SAH for continued rehab. Interval history: Patient reported sleeping well last night and overall feels fine. No acute events reported overnight. Blood pressure elevated noted to be 170 systolic this a.m. OBJECTIVE PHYSICAL EXAMINATION: VITAL SIGNS: Please see below. General: No acute distress, Alert Eyes: Normal sclera, EOMI, ARSALAN HENT: Atraumatic, neck supple, moist mucous membranes Cardiovascular: Normal rate, normal rhythm. No murmurs appreciated. LE nonpitting edema improving. Pulmonary: Clear to auscultation b/l, no wheezing GI: Soft, nontender, nondistended Skin: Warm and dry Neuro: CN grossly intact. No focal deficits. LABORATORY DATA, IMAGING STUDIES, MICROBIOLOGY: Please see below. DVT prophylaxis ordered?: HSQ ASSESSMENT AND PLAN: 1. 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 -c/w Keppra for 21 day course and Nimodipine to prevent vasopasm. -Also on ASA. 2. Hyponatremia resolved. - Likely SIADH - Florinef discontinued. - Also on salt tablets, Na had been stable. consider discontinuing if Na contin ues to increase. - LE dependent nonpitting edema. 3. GI bleed - recent bleed noted and had been seen by GI, thought to be hemorrhoids. - Hb had been stable. continue to monitor. 4. HTN - On Cozaar 125 mg daily currently in addition to Nimodipine. BP not controlled. - Since she is already on an ARB, lasix/diuretic/CCB, would be hesitant to start her on thiazide on top of diuretic but may be considered. - Norvasc may be a good option to start once she's off of Nimodipine. - Will try adding metoprolol for now. 5. HFpEF - Appear to be hypervolemic with dependent LE edema. - Lasix 40 mg PO daily. - c/w compression wraps. 6. GERD - c/w PPI. 7. DM - continue Accuchecks monitoring. - maintain on ISS. Hold oral glycemic meds. 8. UTI - Urine culture + staph simulans >100,000 CFU. - No dysuria but does have urinary frequency but patient is on Lasix. - c/w macrobid for treatment. Likely will only need a 5 day course and can d/c after 02/25. VS, I&O, 24H, Fishbone Vital Signs/I&O Vital Signs Date Time Temp Pulse Resp B/P (MAP) Pulse Ox O2 Delivery O2 Flow Rate FiO2 02/26/19 05:15 97.4 57 18 172/79 (110) 93 I&O- Last 24 Hours up to 6 AM 02/26/19 06:00 Intake Total 2040 ml Balance 2040 ml Laboratory Data 24H LABS Laboratory Tests 2 02/25/19 16:37: Bedside Glucose (Misc Panel) 116H 02/26/19 05:54: Bedside Glucose (Misc Panel) 101 02/26/19 05:57: Nucleated Red Blood Cells % (auto) 0.0 CBC/BMP Laboratory Tests 02/26/19 05:57 Red Blood Count 3.79 L, Mean Corpuscular Volume 94.7, Mean Corpuscular Hemoglobin 29.8, Mean Corpuscular Hemoglobin Concent 31.5 L, Red Cell Distribution Width 14.9 H Microbiology Microbiology 02/18/19 Urine Culture - Final, Complete Staphylococcus Simulans ROSA MOTA MD Feb 26, 2019 07:34
[2019-02-26] MEDS: ASPIRIN 81 MG CHEW TABLET PO SCH (09:41)
[2019-02-26] MEDS: NITROFURANTOIN (MACROBID) 100 MG CAP PO SCH ×2 (09:41→21:33)
[2019-02-26] MEDS: OMEPRAZOLE 20 MG CAP PO SCH (09:48)
[2019-02-26] MEDS: METOPROLOL SUCC (TopROL XL) 100MG *XL* TAB PO SCH (09:48)
[2019-02-26] MEDS: FUROSEMIDE 40 MG TAB PO SCH (09:49)
[2019-02-26] MEDS: ASCORBIC ACID 500 MG TAB PO SCH ×2 (09:49→21:33)
[2019-02-26] MEDS: DOCUSATE SODIUM 100 MG CAP PO SCH ×3 (09:49→21:00)
[2019-02-26] MEDS: HEPARIN SOD (PORCINE) 5000 UNITS/ML VIAL SQ SCH ×2 (09:49→21:34)
[2019-02-26] MEDS: POTASSIUM CHLORIDE 10 MEQ SR TABLET PO SCH ×2 (09:49→21:34)
[2019-02-26] MEDS: LOSARTAN 50 MG TAB PO SCH (09:50)
[2019-02-26 14:00] VITALS: BP 149/74
[2019-02-26] MEDS: SENNA 8.6 MG TAB (SENOKOT) PO SCH (21:00)
[2019-02-26] MEDS: ATORVASTATIN 20 MG TAB PO SCH (21:34)
[2019-02-26] MEDS: traZODone 50 MG TAB PO SCH (21:34)
[2019-02-26] MEDS: [UNRECOGNIZED DRUG - OTHER] OU SCH (21:35)
[2019-02-27 06:48] LABS: BLOOD UREA NITROGEN 16 MG/DL (7-18); CALCIUM LEVEL 12.4 MG/DL (8.8-10.2); CARBON DIOXIDE LEVEL 31 MEQ/L (21-32); CHLORIDE LEVEL 105 MEQ/L (98-107); CREATININE FOR GFR 0.85 MG/DL (0.55-1.30); GLOMERULAR FILTRATION RATE > 60.0 (>32); GLUCOSE, FASTING 103 MG/DL (70-100); POTASSIUM SERUM 4.2 MEQ/L (3.5-5.1); SODIUM LEVEL 141 MEQ/L (136-145)
[2019-02-27 08:25] VITALS: BP 158/72
[2019-02-27] MEDS: OMEPRAZOLE 20 MG CAP PO SCH (08:25)
[2019-02-27] MEDS: LOSARTAN 50 MG TAB PO SCH (08:25)
[2019-02-27] MEDS: METOPROLOL SUCC (TopROL XL) 100MG *XL* TAB PO SCH (08:25)
[2019-02-27] MEDS: ASPIRIN 81 MG CHEW TABLET PO SCH (08:25)
[2019-02-27] MEDS: POTASSIUM CHLORIDE 10 MEQ SR TABLET PO SCH ×2 (08:25→21:28)
[2019-02-27] MEDS: NITROFURANTOIN (MACROBID) 100 MG CAP PO SCH (08:25)
[2019-02-27] MEDS: ASCORBIC ACID 500 MG TAB PO SCH ×2 (08:25→21:28)
[2019-02-27] MEDS: DOCUSATE SODIUM 100 MG CAP PO SCH ×3 (08:26→21:00)
[2019-02-27] MEDS: FUROSEMIDE 40 MG TAB PO SCH (08:26)
[2019-02-27] MEDS: HEPARIN SOD (PORCINE) 5000 UNITS/ML VIAL SQ SCH ×2 (08:26→21:28)
[2019-02-27 14:00] VITALS: BP 165/89
--- NOTE | 2019-02-27 17:49 | IPNPDOC ---
Text Note Date of Service The patient was seen on 02/27/19. NOTE SUBJECTIVE: Patient seen and examined at bedside. No acute overnight events r eported. OBJECTIVE PHYSICAL EXAMINATION: VITAL SIGNS: Please see below. General: No acute distress, Alert Eyes: Normal sclera, EOMI, ARSALAN HENT: Atraumatic, neck supple, moist mucous membranes Cardiovascular: Normal rate, normal rhythm. No murmurs appreciated. peripheral edema Pulmonary: Clear to auscultation b/l, no wheezing GI: Soft, nontender, nondistended, +BS LABORATORY DATA, IMAGING STUDIES, MICROBIOLOGY: Please see below. DVT prophylaxis ordered?: HSQ ASSESSMENT AND PLAN: 1. 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 -c/w Keppra for 21 day course and Nimodipine to prevent vasopasm. -Also on ASA. 2. Hyponatremia resolved. - Likely SIADH - Florinef discontinued. - Also on salt tablets, Na had been stable. consider discontinuing if Na continues to increase. - LE dependent nonpitting edema. 3. GI bleed - recent bleed noted and had been seen by GI, thought to be hemorrhoids. - Hb had been stable. continue to monitor. 4. HTN - Has been difficult to control 5. HFpEF - Lasix 40 mg PO daily. - c/w compression wraps. 6. GERD - c/w PPI. 7. DM - continue Accuchecks monitoring. - maintain on ISS. Hold oral glycemic meds. 8. UTI - Urine culture + staph simulans >100,000 CFU. - completed course of macrobid VS,Fishbone, I+O VS, Fishbone, I+O Laboratory Tests 02/27/19 06:01 Calcium Level 12.4 H Vital Signs Date Time Temp Pulse Resp B/P (MAP) Pulse Ox O2 Delivery O2 Flow Rate FiO2 02/27/19 14:00 97.6 59 20 165/89 (872) 94 I&O- Last 24 Hours up to 6 AM 02/27/19 06:00 Intake Total 1400 ml Balance 1400 ml MIN SARKAR MD Feb 27, 2019 17:49
[2019-02-27 20:00] VITALS: BP 138/65
[2019-02-27] MEDS: SENNA 8.6 MG TAB (SENOKOT) PO SCH (21:00)
[2019-02-27] MEDS: ATORVASTATIN 20 MG TAB PO SCH (21:28)
[2019-02-27] MEDS: traZODone 50 MG TAB PO SCH (21:28)
[2019-02-27] MEDS: ACETAMINOPHEN TAB 650MG DOSE (2X325MG) PO PRN (21:28)
[2019-02-27] MEDS: [UNRECOGNIZED DRUG - OTHER] OU SCH (21:29)
[2019-02-28 06:00] VITALS: BP 168/78
[2019-02-28] MEDS: HEPARIN SOD (PORCINE) 5000 UNITS/ML VIAL SQ SCH (08:28)
[2019-02-28] MEDS: POTASSIUM CHLORIDE 10 MEQ SR TABLET PO SCH (08:29)
[2019-02-28] MEDS: LOSARTAN 50 MG TAB PO SCH (08:29)
[2019-02-28] MEDS: OMEPRAZOLE 20 MG CAP PO SCH (08:30)
[2019-02-28] MEDS: DOCUSATE SODIUM 100 MG CAP PO SCH (08:30)
[2019-02-28] MEDS: ASPIRIN 81 MG CHEW TABLET PO SCH (08:30)
[2019-02-28] MEDS: FUROSEMIDE 40 MG TAB PO SCH (08:30)
[2019-02-28] MEDS: ASCORBIC ACID 500 MG TAB PO SCH (08:30)
[2019-02-28] MEDS: METOPROLOL SUCC (TopROL XL) 100MG *XL* TAB PO SCH (08:30)
[2019-02-28] MEDS ORDERED: METO1TAB33 PO (10:02)
[2019-02-28] MEDS ORDERED: OMEP-218 PO (10:02)
[2019-02-28] MEDS ORDERED: FURO40TA2 PO (10:02)
[2019-02-28] MEDS ORDERED: POTA1TAB14 PO (10:02)
[2019-02-28] MEDS ORDERED: SENN18TA PO (10:02)
[2019-02-28] MEDS ORDERED: COLA100C5 PO (10:02)
[2019-02-28] MEDS ORDERED: COZA50TA PO (10:02)
[2019-02-28] MEDS ORDERED: ATOR1TAB21 PO (10:02)
[2019-02-28] MEDS ORDERED: ASPI81CH8 PO (10:02)
--- NOTE | 2019-02-28 12:32 | IPNPDOC ---
Text Note Date of Service The patient was seen on 02/28/19. NOTE Subjective: Patient was seen and examined at the bedside. Patient currently has no new complaints. She reports that she slept well. Has not had any events overnight. Denies any headaches, nausea, vomiting, chest pain, shortness breath, palpitations, abdominal pain, constipation, diarrhea or any urinary discomfort. 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 continue to monitor. HTN - Moderately controlled - c/w Metoprolol and Losartan HFpEF - No evidence of fluid overload - c/w Furosemide - c/w compression wraps DM2 - c/w ISS UTI - Urine culture + staph simulans >100,000 CFU. - s/p macrobid course GERD - c/w Omeprazole DVT prophylaxis - c/w Heparin as per ARU VS,Fishbone, I+O VS, Fishbone, I+O Vital Signs Date Time Temp Pulse Resp B/P (MAP) Pulse Ox O2 Delivery O2 Flow Rate FiO2 02/28/19 06:00 98.0 55 18 168/78 (108 96 I&O- Last 24 Hours up to 6 AM 02/28/19 06:00 Intake Total 1320 ml Balance 1320 ml SATISH LUTZ MD Feb 28, 2019 12:32
--- NOTE | 2019-02-28 14:57 | PMRDS ---
DATE OF ADMISSION: 02/17/2019 DATE OF DISCHARGE: CHIEF COMPLAINT/DISCHARGE DIAGNOSIS: Subarachnoid hemorrhage. HISTORY OF PRESENT ILLNESS: This is an 78-year-old female with a past medical history of congestive heart failure (CHF), arthritis, diabetes, hypertension, hypercalcemia, on aspirin, who presented initially to [facility] ([facility] emergency department (ED) with sudden onset of headache and nausea with photophobia where CTH revealed "diffuse subarachnoid hemorrhage" for which she was transferred to [facility] where she was admitted to the neuro intensive care unit (ICU). CTA neck showed an "extracranial left ICA aneurysm dilation measuring up to 2.3 cm, and CTA head showed "right MCA bifurcation aneurysm measuring up to 5 mm." She was given DDAVP to reverse her aspirin effect, started on nimodipine to prevent vasospasms and placed on intravenous (IV) blood pressure medications to keep her systolic blood pressure (SBP) below 130. In addition, she was started on Keppra for seizure prophylaxis. On 02/02/2019, she underwent a cerebral angiogram with embolization of the right MCA bifurcation without complications. on 02/05/2019, she underwent an echo showing "there was mild concentric left ventricular hypertrophy... estimated left ventricular ejection fraction (LVEF) 60-65%." She developed hyponatremia. Still required daily diuretics for congestive heart failure (CHF). Did not respond well enough to salt tablets, so Florinef was added on day of discharge. Aspirin was also restarted on day of discharge to treat her left cervical unruptured aneurysm as confirmed over the phone with the neurosurgical resident, Dr. Thrasher who confirmed with his attending as not documented in the [facility] notes or discharge summary. She was evaluated by therapy and found to have impairment in gait and activities of daily living (ADL) and deemed medically appropriate for discharge to acute rehabilitation unit (ARU) on 02/17/2019. PAST MEDICAL HISTORY: As per history of present illness (HPI). HOSPITAL COURSE: Patient was admitted, enrolled in a comprehensive physical therapy (PT), occupational therapy (OT), speech, language, pathology program. She received 24 hour nursing supervision and weekly team meetings were held to discuss her progress. She finished off her 21-day course of the Keppra for seizure prophylaxis and did not demonstrate any seizure-like activity during her hospital stay. She also finished up a course of nifedipine for vasospasm prevention. She was maintained on aspirin and Lasix for CHF. Her hyponatremia resolved and the Florinef was quickly tapered in addition to the salt tablets. For her elevated blood pressure, her losartan dose was increased and she was started on metoprolol, which was also titrated up for better control. The patient had very, very good fingersticks during her hospital course while on insulin sliding scale. This was discontinued and she continued to have very good glycemic control off of any diabetic medication. Her urine culture grew staph simulans and she had a low grade fever with some urinary frequency for which she was started and completed a 7-day course and Macrobid. Overall ,patient did quite well and was deemed medically and functionally stable to return to home with outpatient followup with speech therapy. DISCHARGE MEDICATIONS: - aspirin 81 - atorvastatin 40 - Colace 100 three times a day - Lasix 40 daily - losartan 125 by mouth daily - metoprolol succinate 100 by mouth daily - omeprazole 20 daily - Senna 1 tablet by mouth nightly FUNCTIONAL HISTORY: Upon discharge, patient was modified independent with a rolling walker, able to ambulate 300 feet, able to negotiate stairs and successfully complete fall recovery. In occupational therapy, she was modified independent for upper body dressing, grooming, toileting, eating and provided with a script for outpatient speech therapy upon discharge.
== END 2019-02-28 15:00 | disposition home or self-care (01) | DRG 57 ==
LOC: M PM&R 15:05
PROVIDERS: ADMIT Physical Medicine & Rehabilitation; ATTEND Physical Medicine & Rehabilitation
DX: I69.098 Other sequelae following nontraumatic subarachnoid hemorrhage (principal); I50.32 Chronic diastolic (congestive) heart failure; E22.2 Syndrome of inappropriate secretion of antidiuretic hormone; Z68.41 Body mass index [BMI] 40.0-44.9, adult; N39.0 Urinary tract infection, site not specified; R53.1 Weakness; M19.90 Unspecified osteoarthritis, unspecified site; E11.9 Type 2 diabetes mellitus without complications; I11.0 Hypertensive heart disease with heart failure; E83.51 Hypocalcemia; G47.00 Insomnia, unspecified; E83.52 Hypercalcemia; K21.9 Gastro-esophageal reflux disease without esophagitis; B95.7 Other staphylococcus as the cause of diseases classified elsewhere; I67.1 Cerebral aneurysm, nonruptured; K64.8 Other hemorrhoids; E87.6 Hypokalemia; R26.89 Other abnormalities of gait and mobility; E66.01 Morbid (severe) obesity due to excess calories; I72.6 Aneurysm of vertebral artery; Z79.82 Long term (current) use of aspirin; Z79.899 Other long term (current) drug therapy; Z88.0 Allergy status to penicillin; Z88.8 Allergy status to other drugs, medicaments and biological substances; Z98.49 Cataract extraction status, unspecified eye; Z90.49 Acquired absence of other specified parts of digestive tract

== ENCOUNTER → 2019-03-30 | Outpatient (CLI) | payer MEDICARE ==
[~2019-03-30] MED LIST changes: +ACET-907 PO; +ASPI81CH8 PO; +ATOR1TAB21 PO; +BISA10SU27 PR; +C 50TAB PO; +CALC12504 PO; +COLA100C5 PO; +COZA50TA PO; +CVS40GEL PO; +FLUD0.1T PO; +FURO40TA2 PO; +HEPA500011 INJ; +KEPP1TAB PO; +LOSA100T50 PO; +MELA3TAB49 PO; +METO1TAB33 PO; +MILKSUS3 PO; +MIRA3350 PO; +NYST1POW9 TOP; +OMEP-218 PO; +OXYC-517 PO; +POTA1TAB14 PO; +SENN18TA PO; +SODI1TAB6 PO; +TRAV04OPD OU; +[UNRECOGNIZED DRUG - CODE] PO
--- NOTE | 2019-03-30 15:47 | REP ---
Clinical: Wheezing. Technique: PA and lateral. Comparison: 01/23/2016. Findings: Mediastinum and cardiac silhouette are stable. Hiatal hernia again identified. The lung gage are relatively clear. Minimal linear scarring in the right mid lung zone again identified. No consolidation, effusion, or pneumothorax. Skeletal structures are intact. Impression: Chronic stable changes. No acute cardiopulmonary process appreciated. Electronically Signed by Lewis Peñaloza MD 03/30/2019 03:37 P
== END ==
LOC: M RAD 14:55
PROVIDERS: ATTEND Hospitalist
DX: K44.9 Diaphragmatic hernia without obstruction or gangrene (principal); R91.8 Other nonspecific abnormal finding of lung field; R06.2 Wheezing

== ENCOUNTER → 2019-04-07 | Outpatient (REF) | payer MEDICARE | LOC: M SFHCPLAZ 15:47 | DX: I50.9 Heart failure, unspecified (principal); E13.9 Other specified diabetes mellitus without complications; Z53.8 Procedure and treatment not carried out for other reasons ==

== ENCOUNTER → 2019-04-10 | Outpatient (REF) | payer MEDICARE ==
[2019-04-10 11:28] LABS: HEMOGLOBIN A1c 6.2 %
[2019-04-10 11:32] LABS: CALCIUM LEVEL 9.5 MG/DL (8.8-10.2); CREATININE FOR GFR 1.11 MG/DL (0.55-1.30); GLOMERULAR FILTRATION RATE 50.3 (>32); POTASSIUM SERUM 2.9 MEQ/L (3.5-5.1)
== END ==
LOC: M SFHCPLAZ 08:59
DX: I50.9 Heart failure, unspecified (principal); E13.9 Other specified diabetes mellitus without complications

== ENCOUNTER → 2019-04-11 | Outpatient (REF) | payer MEDICARE ==
[2019-04-11 12:48] LABS: CALCIUM LEVEL 10.2 MG/DL (8.8-10.2); CREATININE FOR GFR 1.01 MG/DL (0.55-1.30); GLOMERULAR FILTRATION RATE 56.1 (>32); POTASSIUM SERUM 3.6 MEQ/L (3.5-5.1)
== END ==
LOC: M SFHCPLAZ 08:41
PROVIDERS: ATTEND Family Medicine
DX: E16.2 Hypoglycemia, unspecified (principal)

== ENCOUNTER → 2019-07-14 | Outpatient (REF) | payer MEDICARE ==
[~2019-07-14] MED LIST changes: +BISO5TAB9 PO; -CALC12504 PO; +CALC500T61 PO; +OMEP20CA4 PO
[2019-07-14 12:50] LABS: HEMATOCRIT 39.8 % (36.0-47.0); HEMOGLOBIN 12.5 g/dl (12.0-15.5); MEAN CORPUSCULAR HEMOGLOBIN 28.5 pg (27.0-33.0); MEAN CORPUSCULAR HGB CONC 31.4 g/dl (32.0-36.5); MEAN CORPUSCULAR VOLUME 90.7 fl (80.0-96.0); PLATELET COUNT, AUTOMATED 242 10^3/uL (150-450); RED BLOOD COUNT 4.39 10^6/uL (4.00-5.40); WHITE BLOOD COUNT 4.5 10^3/uL (4.0-10.0)
[2019-07-14 13:18] LABS: CALCIUM LEVEL 9.6 MG/DL (8.8-10.2); CREATININE FOR GFR 1.02 MG/DL (0.55-1.30); GLOMERULAR FILTRATION RATE 55.5 (>32); POTASSIUM SERUM 3.6 MEQ/L (3.5-5.1)
== END ==
LOC: M SFHCPLAZ 09:14
DX: E87.8 Other disorders of electrolyte and fluid balance, not elsewhere classified (principal)

== ENCOUNTER → 2019-08-14 | Outpatient (CLI) | payer MEDICARE ==
--- NOTE | 2019-08-14 13:36 | REP ---
MR ANGIOGRAPHY THE BRAIN WITHOUT CONTRAST: HISTORY: Right MCA aneurysm coiled in January 2019 . Followup MR angiography of the brain. Comparison CT study of the brain February 01, 2019. TECHNIQUE: 3D [id number] MR angiography of the brain is acquired in the usual fashion and maximal intensity projection images were generated in rotational format about the vertical and horizontal axes. In addition, source axial T1-weighted images are viewed in cine mode. MR ANGIOGRAPHIC FINDINGS: The distal vertebral arteries are patent and co-dominant. Basilar artery is a little tortuous but widely patent. The posterior cerebral and superior cerebellar vessels are normal and symmetric. The distal internal carotid arteries are unremarkable. Anterior and middle cerebral arteries appear intact. There is a small focus of magnetic field susceptibility artifact at the trifurcation of the M1 segment on the right consistent with a history of aneurysm coiling here. There is no visible ponce aneurysm or arteriovenous malformation. However, there is an incidental finding at the bottom of the imaging field of view which is incompletely imaged. There is a 2.6 x 2.5 cm hyperintense lesion in the skull base soft tissues on the left lateral to the cervical internal carotid artery. This appears to be an enhancing mass. A large vascular lesion or aneurysm is a possibility. Soft tissue asymmetry is visible in retrospect on the CT study from January 25, 2019. IMPRESSION: The patient is status post coiling, with corresponding magnetic field susceptibility artifact visualized at the bifurcation of the MCA on the right side. No other evidence of intracranial aneurysm is seen. There is an incidental finding of a 2.6 cm mass versus giant aneurysm in the skull base soft tissues on the left. This is incompletely imaged. Soft tissue neck CT study with IV contrast is recommended. Electronically Signed by John Lassiter MD 08/14/2019 03:17 P
== END ==
LOC: M RAD 10:25
PROVIDERS: ATTEND Neurological Surgery
DX: I60.9 Nontraumatic subarachnoid hemorrhage, unspecified (principal)

== ENCOUNTER → 2020-05-20 | Outpatient (CLI) | payer MEDICARE ==
[~2020-05-20] MED LIST changes: +BISO5TAB14 PO; -BISO5TAB9 PO; +OMEP1CAP73 PO; -OMEP20CA4 PO
--- NOTE | 2020-05-20 16:21 | REPVR ---
PROCEDURE INFORMATION: Exam: MR Angiogram Head Without Contrast, Arteries Exam date and time: 05/20/2020 2:53 PM Age: 79 years old Clinical indication: Condition or disease; Aneurysm, cerebral; Prior surgery; Surgery date: 6+ months; Surgery type: Aneurysm coiling annual f/u; Patient HX: HX aneurysm, status post coiling TECHNIQUE: Imaging protocol: MR angiogram head without contrast. Exam focused on the arteries. 3D rendering: MIP and/or 3D reconstructed images were created by the technologist. COMPARISON: MRA BRAIN W/O CONTRAST 08/14/2019 11:19 AM FINDINGS: Anterior cerebral arteries: Intracranial segment is patent with no significant stenosis. No aneurysm. Right internal carotid artery: Intracranial segment is patent with no significant stenosis. No aneurysm. Right middle cerebral artery: Status post coiling at the trifurcation of right M1 segment with susceptibility artifact. Right posterior cerebral artery: No occlusion or significant stenosis. No aneurysm. Right vertebral artery: No occlusion or significant stenosis. No aneurysm. Left internal carotid artery: There is a 2.6 x 2.5 cm hyperintense lesion in the skull base soft tissues on the left lateral to the cervical internal carotid artery with no significant change from prior study. Left middle cerebral artery: No occlusion or significant stenosis. No aneurysm. Left posterior cerebral artery: No occlusion or significant stenosis. No aneurysm. Left vertebral artery: No occlusion or significant stenosis. No aneurysm. Basilar artery: No occlusion or significant stenosis. No aneurysm. IMPRESSION: Status post coiling of the right MCA bifurcation of M1 segment with no significant change from prior study. No other evidence of intracranial aneurysm. 2.5 x 2.6 cm mass versus aneurysm in the skull base soft tissues on the left with no significant change. Electronically signed by: Giorgio Coleman On 05/20/2020 16:20:39 PM
== END ==
LOC: M RAD 14:05
PROVIDERS: ATTEND Neurological Surgery
DX: I60.9 Nontraumatic subarachnoid hemorrhage, unspecified (principal)

== ENCOUNTER → 2022-07-22 | Outpatient (CLI) | payer MEDICARE ==
[~2022-07-22] MED LIST changes: +LOSA100T45 PO; -LOSA100T50 PO; +LOSA50TA28 PO; -LOSA50TA88 PO; +OMEP-173 PO; -OMEP-218 PO
== END ==
LOC: M PLAIMG 14:54
PROVIDERS: ATTEND Student in an Organized Health Care Education/Training Program
DX: I67.1 Cerebral aneurysm, nonruptured (principal); I65.21 Occlusion and stenosis of right carotid artery; I66.01 Occlusion and stenosis of right middle cerebral artery

== ENCOUNTER → 2022-07-23 | Outpatient (CLI) | payer MEDICARE | LOC: M PLALAB 16:01 | PROVIDERS: ATTEND Student in an Organized Health Care Education/Training Program | DX: D35.1 Benign neoplasm of parathyroid gland (principal) ==

== ENCOUNTER 2022-11-09 09:47 | Emergency (ER) | payer MEDICARE ==
[~2022-11-09] VITALS: Ht 152.4 cm; Wt 100.0 kg
[2022-11-09] MEDS ORDERED: DOXY-443 PO (12:30)
[2022-11-09 12:46] VITALS: BP 191/77
== END 2022-11-09 13:00 | disposition home or self-care (01) ==
LOC: M ED 09:47
DX: R60.0 Localized edema (principal); I73.9 Peripheral vascular disease, unspecified; I50.9 Heart failure, unspecified; E11.51 Type 2 diabetes mellitus with diabetic peripheral angiopathy without gangrene; I10 Essential (primary) hypertension; Z88.0 Allergy status to penicillin; Z88.8 Allergy status to other drugs, medicaments and biological substances; Z79.82 Long term (current) use of aspirin; Z79.1 Long term (current) use of non-steroidal anti-inflammatories (NSAID); Z79.899 Other long term (current) drug therapy

== ENCOUNTER → 2022-12-14 | Outpatient (CLI) | payer MEDICARE ==
[~2022-12-14] MED LIST changes: +DOXY-443 PO
== END ==
LOC: M RAD 13:15
PROVIDERS: ATTEND Physician Assistant
DX: L97.822 Non-pressure chronic ulcer of other part of left lower leg with fat layer exposed (principal)

== ENCOUNTER → 2022-12-21 | Outpatient (CLI) | payer MEDICARE | LOC: M RAD 12:20 | PROVIDERS: ATTEND Physician Assistant | DX: I87.303 Chronic venous hypertension (idiopathic) without complications of bilateral lower extremity (principal) ==

== ENCOUNTER → 2022-12-29 | Outpatient (REF) | payer MEDICARE | LOC: M SFHCPLAZ 15:07 | PROVIDERS: ATTEND Family Medicine | DX: D35.1 Benign neoplasm of parathyroid gland (principal); Z13.1 Encounter for screening for diabetes mellitus; Z13.220 Encounter for screening for lipoid disorders; Z13.21 Encounter for screening for nutritional disorder ==

== ENCOUNTER → 2022-12-29 | Outpatient (CLI) | payer MEDICARE ==
[2022-12-29 17:42] LABS: BASO % 0.7 % (0.0-1.0); EOS # 0.1 10^3/uL (0.0-0.5); EOS % 1.7 % (0.0-3.0); HEMATOCRIT 42.6 % (36.0-47.0); LYMPH # 2.2 10^3/uL (1.5-5.0); MEAN CORPUSCULAR HGB CONC 32.9 g/dl (32.0-36.5); MEAN CORPUSCULAR VOLUME 100.5 fl (80.0-96.0); MONO # 0.4 10^3/uL (0.0-0.8); MONO % 7.2 % (2.0-8.0); NEUTROPHILS # 3.1 10^3/uL (1.5-8.5); NEUTROPHILS % 53.1 % (36.0-66.0); PLATELET COUNT, AUTOMATED 256 10^3/uL (150-450); RED BLOOD COUNT 4.24 10^6/uL (4.00-5.40); WHITE BLOOD COUNT 5.8 10^3/uL (4.0-10.0)
[2022-12-29 18:17] LABS: HEMOGLOBIN A1c 5.7 % (4.0-6.0)
[2022-12-29 18:50] LABS: TOTAL 25(OH) VITAMIN D 34.4 NG/ML (20.0-100.0)
[2022-12-29 19:15] LABS: CALCIUM LEVEL 11.2 MG/DL (8.3-10.6); CHOLESTEROL RISK RATIO 2.32 (<5); HDL CHOLESTEROL 90.7 MG/DL (>40); LDL CHOLESTEROL 99.1 MG/DL (<100); POTASSIUM SERUM 4.2 MMOL/L (3.5-5.1)
[2022-12-29 20:02] LABS: CREATININE FOR GFR 1.12 MG/DL (0.55-1.30); GLOMERULAR FILTRATION RATE 49.3 (>32)
[2022-12-29 21:56] LABS: PTH INTACT 279.5 PG/ML (18.5-88.0)
== END ==
LOC: M PLALAB 15:18
PROVIDERS: ATTEND Student in an Organized Health Care Education/Training Program
DX: D35.1 Benign neoplasm of parathyroid gland (principal); Z13.1 Encounter for screening for diabetes mellitus; Z13.220 Encounter for screening for lipoid disorders; Z79.899 Other long term (current) drug therapy

== ENCOUNTER → 2023-07-08 | Outpatient (CLI) | payer MEDICARE, MEDICAID ==
[~2023-07-08] MED LIST changes: -COZA50TA PO; +LOSA-528 PO; -LOSA100T45 PO; +LOSA100T46 PO; +POTA-298 PO; -POTA1TAB14 PO; +SENN-111 PO; -SENN18TA PO
[2023-07-08 17:06] LABS: BASO % 0.6 % (0.0-1.0); EOS # 0.1 10^3/uL (0.0-0.5); EOS % 1.2 % (0.0-3.0); HEMATOCRIT 39.2 % (36.0-47.0); HEMOGLOBIN 13.4 g/dl (12.0-15.5); LYMPH # 1.6 10^3/uL (1.5-5.0); MEAN CORPUSCULAR HEMOGLOBIN 33.6 pg (27.0-33.0); MEAN CORPUSCULAR HGB CONC 34.2 g/dl (32.0-36.5); MEAN CORPUSCULAR VOLUME 98.2 fl (80.0-96.0); MONO # 0.3 10^3/uL (0.0-0.8); MONO % 6.5 % (2.0-8.0); NEUTROPHILS # 3.2 10^3/uL (1.5-8.5); NEUTROPHILS % 61.5 % (36.0-66.0); PLATELET COUNT, AUTOMATED 188 10^3/uL (150-450); RED BLOOD COUNT 3.99 10^6/uL (4.00-5.40); WHITE BLOOD COUNT 5.2 10^3/uL (4.0-10.0)
[2023-07-08 17:20] LABS: CALCIUM LEVEL 10.1 MG/DL (8.3-10.6); CREATININE FOR GFR 1.01 MG/DL (0.55-1.30); GLOMERULAR FILTRATION RATE 55.6 (>32)
[2023-07-08 17:21] LABS: PTH INTACT 227.4 PG/ML (18.5-88.0)
== END ==
LOC: M PLALAB 14:23
PROVIDERS: ATTEND Student in an Organized Health Care Education/Training Program
DX: D35.1 Benign neoplasm of parathyroid gland (principal); I10 Essential (primary) hypertension

== ENCOUNTER → 2023-07-08 | Outpatient (REF) | payer MEDICARE, MEDICAID | LOC: M SFHCPLAZ 13:52 | PROVIDERS: ATTEND Internal Medicine Hematology | DX: I10 Essential (primary) hypertension (principal); D35.1 Benign neoplasm of parathyroid gland ==

== ENCOUNTER → 2023-08-12 | Outpatient (CLI) | payer MEDICAID, MEDICARE ==
[2023-08-12 16:29] LABS: CALCIUM LEVEL 9.9 MG/DL (8.3-10.6); CREATININE FOR GFR 1.14 MG/DL (0.55-1.30); GLOMERULAR FILTRATION RATE 48.3 (>32); MAGNESIUM LEVEL 2.1 MG/DL (1.8-2.4); POTASSIUM SERUM 4.1 MMOL/L (3.5-5.1)
== END ==
LOC: M PLALAB 12:18
PROVIDERS: ATTEND Student in an Organized Health Care Education/Training Program
DX: I10 Essential (primary) hypertension (principal)

== ENCOUNTER → 2024-09-20 | Outpatient (CLI) | payer MEDICAID, OTHER ==
[~2024-09-20] MED LIST changes: +DOXY-441 PO; -DOXY-443 PO; +NYST1POW3 TOP; -NYST1POW9 TOP; -SENN-111 PO; +SENN-165 PO
[2024-09-20 17:42] LABS: BASO % 0.5 % (0.0-1.0); EOS # 0.1 10^3/uL (0.0-0.5); EOS % 1.3 % (0.0-3.0); HEMATOCRIT 35.1 % (36.0-47.0); LYMPH # 1.6 10^3/uL (1.5-5.0); LYMPH % 20.7 % (24.0-44.0); MEAN CORPUSCULAR HGB CONC 34.2 g/dl (32.0-36.5); MEAN CORPUSCULAR VOLUME 96.4 fl (80.0-96.0); MONO # 0.6 10^3/uL (0.0-0.8); NEUTROPHILS # 5.5 10^3/uL (1.5-8.5); NEUTROPHILS % 69.2 % (36.0-66.0); PLATELET COUNT, AUTOMATED 257 10^3/uL (150-450); RED BLOOD COUNT 3.64 10^6/uL (4.00-5.40); WHITE BLOOD COUNT 7.9 10^3/uL (4.0-10.0)
[2024-09-20 18:05] LABS: CALCIUM LEVEL 11.1 MG/DL (8.3-10.6); CREATININE FOR GFR 1.42 MG/DL (0.55-1.30); GLOMERULAR FILTRATION RATE 37.4 (>32); MAGNESIUM LEVEL 1.6 MG/DL (1.8-2.4); POTASSIUM SERUM 3.9 MMOL/L (3.5-5.1)
[2024-09-20 18:32] LABS: HEMOGLOBIN A1c 5.7 % (4.0-6.0)
== END ==
LOC: M LAB 15:49
PROVIDERS: ATTEND Student in an Organized Health Care Education/Training Program
DX: T14.8XXA Other injury of unspecified body region, initial encounter (principal); W18.30XA Fall on same level, unspecified, initial encounter; Y92.009 Unspecified place in unspecified non-institutional (private) residence as the place of occurrence of the external cause